=== PATIENT | female | born 1960 | race Caucasian/White ===

== ENCOUNTER 2023-06-11 06:14 | Outpatient (RCR) | payer OTHER, SELFPAY | END 2023-06-11 23:59 | disposition home or self-care (01) | LOC: RPT 06:14 | PROVIDERS: ATTENDING PHYSICIAN Internal Medicine | DX: R42 Dizziness and giddiness (principal) | CPT/HCPCS: 97112; 97163 ==

== ENCOUNTER → 2023-09-17 14:28 | Outpatient (REF) | payer OTHER, SELFPAY | LOC: RAD 14:28 | PROVIDERS: ATTENDING PHYSICIAN Nurse Practitioner | DX: M25.561 Pain in right knee (principal); M25.562 Pain in left knee | CPT/HCPCS: 73564 ==

== ENCOUNTER 2023-10-01 07:47 | Inpatient (IN) | payer OTHER, SELFPAY ==
[2023-09-30 18:26] VITALS: BP 135/81; BMI 34.8
--- NOTE | 2023-09-30 19:57 | ED.GENMED ---
History of Present Illness
General
Chief Complaint: Chest Pain
Source: patient and records
Exam Limitations: none
Time Seen by Provider: 09/30/23 19:28
Nursing documentation reviewed up to this point in time: agreed with
Travel History
Have you had any contact with someone who has COVID-19?: No
Do you have any symptoms of coronavirus? Fever > 100 degrees, chills, cough, shortness of breath, sore throat, loss of taste or smell, muscle aches, or headache?: No
History of Present Illness
History of Present Illness:
63-year-old female patient Dr. Stiles AICD went off 1 time previously in April 2023 meds and settings were adjusted started new diet about a week ago had some diarrhea earlier today had about 10 minutes of palpitations then had an AICD shock few
hours ago subsequently had some pain in her chest, no fevers, has been compliant with her metoprolol 50 twice daily
Past History
Past History
ED Past Medical History: Arrthythmia, GERD and Other (Hypertrophic cardiomyopathy)
ED Past Surgical History: Cardiac
Social History
Tobacco: Non-smoker
Alcohol: None
Drug: None
Personal:
Living: with family
Employment: Employed
Review of Systems
Review of Systems
All Other Systems: Not applicable
Constitutional: Denies fatigue
Cardiac: Reports palpitations and other (AICD shock)
ABD/GI: Reports diarrhea
Phy Exam
Physical Exam
Physical Exam:
Physical Exam
General: no apparent distress, not acutely ill
Neck: No jaundice
Heart: Regular
Lungs: no acute respiratory distress. clear bilaterally
Neuro: alert and oriented. no focal neurological deficits
Skin: no rash
Psychiatric: well kept. interactive and cooperative
Extremities: no edema.
Scores
Heart Score for Chest Pain Patients
STEMI patient?: Not applicable
Course
Orders/Labs/Results
Orders:
Orders
09/30/23 18:25
EKG [Electrocardiogram (*1)] Urgent
Reason for Study: Tachycardia
09/30/23 18:26
EKG- Treatment ONCE
09/30/23 19:33
CR Chest - 2 Views Urgent
Comment:
Reason For Exam: cp
09/30/23 19:52
Complete Blood Count/With Diff Urgent
Comprehensive Metabolic Panel Urgent
Magnesium Urgent
Troponin I Urgent
09/30/23 20:54
0.9% Sodium Chloride 500 ml [Nss] 500 ml IV BOLUS
09/30/23 21:28
Metoprolol [Lopressor] 75 mg PO NOW STA
09/30/23 21:29
CARDIOLOGY CONSULT Routine
Consulting Provider: Killian Lyn
Was physician already notified: Yes
09/30/23 21:30
Apixaban [Eliquis] 5 mg PO BID
Abnormal Lab Results
09/30/23
19:52
MCH 31.7 H pg
(27.0-31.0)
Carbon Dioxide 21 L mmol/L
(22-30)
BUN 23 H mg/dl
(7-17)
Glucose 147 H mg/dl
(70-99)
AST 40 H U/L
(14-36)
09/30/23 19:52
09/30/23 19:52
Vital Signs
Initial and Last Documented VS:
Initial Vital Signs
Temp Pulse Resp BP Pulse Ox
98.2 F 79 16 135/81 98
09/30/23 18:26 09/30/23 18:26 09/30/23 18:26 09/30/23 18:26 09/30/23 18:26
Last Documented Vital Signs
Temp Pulse Resp BP Pulse Ox
98.2 F 79 16 135/81 98
09/30/23 18:26 09/30/23 18:26 09/30/23 18:26 09/30/23 18:26 09/30/23 18:26
MDM/Problems Addressed
Differential Diagnosis Includes:
AICD shock VT AF SVT
MDM/Problems Addressed:
Palpitations
Chronic conditions affecting care: Cardiomyopathy
Acute Exacerbation and/or Progression of Chronic Illness: Cardiomyopathy
*Radiology
Radiology exam reviewed: preliminary read by ED provider
*Pulse Oximetry
Patient hypoxic: no
*EKG
Interpreted by ED Provider?: Yes
Interpretation: abnormal
Comparison EKG: changes noted
Heart Rate: 78
Rate: normal
Rhythm: sinus
Ischemia: T-wave inversion
*Active Directory Administrator Interpretation
Rate: normal
Interpretation: normal
Heart Rate: 78
Rhythm: ventricular paced
*Critical Care Note
Total Time (30-74mins, 75-104mins- exclusive of procedures): Not Applicable
Update Note
Update Note:
Update reviewed with StowThat patient with VF zone shock ATP unsuccessful 30 J shock heart rate greater than 200
Reviewed with cardiology and EP, likely rapid A-fib
Plan increase AV bernardo blockers anticoagulation correct electrolytes
Reviewed with patient and on-call cardiology and hospitalist will be admitted overnight for monitoring
ED Attending Note
-
Portions of this chart may have been created with voice recognition software.� Occasional wrong word or��sound alike� substitutions may have occurred due to the inherent limitations of voice recognition software.
Discharge Plan
Departure
Patient Disposition: Admit
Date of Disposition: 09/30/23
Time of Disposition: 21:31
Admit to: Telemetry
Presentation/result/management discussed w/ accepting MD/DO: Hospitalist
Patient with high blood pressure during this ER visit?: No
Condition: Good
Discharge Problem:
aicd shock
Prescriptions:
No Action
rabeprazole [AcipHex] 20 MG tablet,delayed release (DR/EC)
20 mg PO DAILY
metoprolol tartrate 50 MG tablet
75 mg PO .PM
loratadine 10 MG tablet
10 mg PO DAILY
epinephrine [EpiPen] 0.3 MG/0.3/SYRINGE auto-injector
0.3 mg IM STAT! PRN (Reason: severe sob) Qty: 2 0RF
multivitamin [Multi-Day] 1 EACH tablet
1 tab PO DAILY
levothyroxine 75 MCG tablet
75 mcg PO .PM
escitalopram oxalate 5 MG tablet
5 mg PO DAILY
ondansetron 4 mg tablet,disintegrating
4 mg PO Q8H PRN (Reason: nausea and vomiting) Qty: 7 0RF
meclizine 25 mg tablet
25 mg PO TID PRN (Reason: dizziness) Qty: 10 0RF
Referrals:
Hanh Pena MD [Family Provider] -
Interventions
Interventions:
*Risk Screen - Suicide Last Done: 09/30/23 18:26
*Neglect/Abuse Screening Last Done: 09/30/23 18:26
ED- Fall Risk Assessment Last Done: 09/30/23 18:26
*ED COVID-19 Vaccine History Last Done: 09/30/23 18:26
ED- Cardiac Assessment Last Done: 09/30/23 19:57
Discharge Date and Time
Print Language: AFGHAN
[2023-09-30 19:59] LABS: % Basophils 0.7 % (0-2); % Eosinophils 1.6 % (0-6); % Immature Granulocytes 0.1 % (0-0.5); % Lymphocytes 30.5 % (20.5-51.1); % Monocytes 7.1 % (1.7-9.3); Absolute Basophils 0.1 10^3/uL (0-0.2); Absolute Eosinophils 0.1 10^3/uL (0-0.7); Absolute Lymphocytes 2.2 10^3/uL (1.2-3.4); Absolute Monocytes 0.5 10^3/uL (0.1-0.6); Absolute Neutrophils 4.2 10^3/uL (1.4-6.5); Hemoglobin 14.7 g/dL (12.0-16.0); Mean Corp Hgb Conc. 36.8 g/dL (33.0-37.0); Mean Corpuscular Hgb 31.7 pg (27.0-31.0); Mean Corpuscular Volume 86.2 fL (81.0-99.0); Mean Platelet Volume 9.4 fL (7.4-10.4); Nucleated Red Blood Cells % 0 %; Platelet Count 240 10^3/uL (130-400); Red Blood Cell Count 4.64 10^6/uL (4.20-5.40); Red Cell Dist. Width 12.7 % (11.5-14.5)
[2023-09-30 20:04] VITALS: BP 102/71
[2023-09-30 20:14] LABS: ALT (SGPT) 28 U/L (0-35); AST (SGOT) 40 U/L (14-36); Albumin 4.9 g/dl (3.5-5.0); Alkaline Phosphatase 82 U/L (38-126); Blood Urea Nitrogen 23 mg/dl (7-17); Calcium 9.5 mg/dl (8.4-10.2); Carbon Dioxide 21 mmol/L (22-30); Chloride 101 mmol/L (98-107); Estimated Creatinine Clearance 93 ml/min; Glucose 147 mg/dl (70-99); Magnesium 1.9 mg/dl (1.6-2.3); Potassium 3.7 mmol/L (3.5-5.1); Sodium 135 mmol/L (135-145); Total Bilirubin 0.5 mg/dl (0.2-1.3); Total Protein 7.8 g/dl (6.3-8.2); eGFR > 60.00
[2023-09-30 20:20] LABS: Troponin I < 0.012 ng/ml
[2023-09-30 21:00] VITALS: BP 116/68
[2023-09-30] MEDS: LOPRESSOR 75 MG PO (21:34)
[2023-09-30] MEDS: ELIQUIS 5 MG PO (21:37)
[2023-09-30] MEDS: NSS 500 IV (21:37)
--- NOTE | 2023-09-30 21:51 | HPS.HSE ---
Family Physician
-
Family Physician: Hanh Pena
Chief Complaint
-
ICD shock
History of Present Illness
63-year-old female past medical history of hypertrophic cardiomyopathy status post ICD, IBS, panic attacks, hypothyroidism, GERD, presenting with ICD shock.
Patient started a new diet last week which involves eating 9[address]01 trevor a day. Today she developed profuse watery diarrhea. Later in the day she developed palpitations associated with dizziness and sweating and chest pain with numbness of her left
upper extremity. She took extra dose of beta-annabelle which she was told by her hris analyst to do previously but this did not help. Her ICD then shocked her. She denies passing out. After some time she felt better. She denies any symptoms
currently. Had some nausea previously but denies vomiting or abdominal pain.
Patient had a similar episode in April 2023. At that time tachycardia was attributed to bronchitis and steroids. Her pacemaker settings were adjusted at that time.
She states the diarrhea has since resolved.
She smokes a few cigarettes a day. Drinks alcohol very rarely.
Medical History
Past Medical History
Past Medical History: Reports Other (hypertrophic cardiomyopathy status post ICD, IBS, panic attacks, hypothyroidism, GERD,)
Past Surgical History: Reports Appendectomy and
Social History
Tobacco: Smoker
Alcohol: Occasional
Drug: None
Family History
Family History: Not pertinent
Allergies / Home Medications
Allergies reflects when Allergies were last updated in [employer]
Home Medications with original date entered in [employer]
Allergy/Medication List:
Allergies
Allergy/AdvReac Type Severity Reaction Status Date / Time
bee stings Allergy Swelling Uncoded 09/30/23 18:25
Home Medications
loratadine 10 mg tablet 10 mg PO DAILY 01/28/08
escitalopram oxalate 5 mg tablet 5 mg PO DAILY 06/04/16
ascorbic acid (vitamin C) 500 mg tablet (Vitamin C) 500 mg PO DAILY 09/30/23
levothyroxine 88 mcg tablet (Synthroid) 88 mcg PO DAILY 09/30/23
metoprolol succinate 50 mg tablet,extended release 24 hr (Toprol XL) 50 mg PO BID 09/30/23
omeprazole 20 mg tablet,delayed release 20 mg PO DAILY 09/30/23
pravastatin 80 mg tablet 40 mg PO HS 09/30/23
therapeutic multivitamin 1 tab PO DAILY 09/30/23
turmeric 400 mg capsule 400 mg PO DAILY 09/30/23
Review of Systems
-
History Source: Patient
A 12 point ROS was completed and negative except as noted: Yes
Constitutional: Reports No Symptoms
EENT: Reports No Symptoms
Respiratory: Reports No Symptoms
Cardiac: Reports No Symptoms
Abdomen/GI: Reports See HPI
: Reports No Symptoms
Musculoskeletal: Reports No Symptoms
Skin: Reports No Symptoms
Neurological: Reports No Symptoms
Endocrine: Reports No Symptoms
Hematologic/Lymphatic: Reports No Symptoms
Psych: Reports No Symptoms
Physical Exam
Vital Signs
Vital Signs
Temp Pulse Resp BP Pulse Ox
98.2 F 70 21 116/68 98
09/30/23 18:26 09/30/23 21:34 09/30/23 21:15 09/30/23 21:34 09/30/23 18:26
Physical Exam
General: Well Developed, Well Nourished and No Apparent Distress
HEENT: NormoCephalic, Moist mucous membranes and Atraumatic
Respiratory: Clear
Cardiac: S1/S2 and Regular Rhythm; No Murmur or Rub
GI: Soft, Non Tender, Non Distended and Normal Bowel Sounds; No Organomegaly
Rectal: Deferred by Provider
Musculoskeletal: No Clubbing, No Cyanosis and No Edema
Skin: No Rash
Neuro: Nonfocal/grossly intact
Laboratory Results
-
09/30/23 19:52
09/30/23 19:52
Laboratory Results
Total Bilirubin 0.5 mg/dl (0.2-1.3) 09/30/23 19:52
AST 40 U/L (14-36) H 09/30/23 19:52
ALT 28 U/L (0-35) 09/30/23 19:52
Alkaline Phosphatase 82 U/L (38-126) 09/30/23 19:52
Troponin I < 0.012 ng/ml 09/30/23 19:52
Data Reviewed
-
Lab Data: Labs Reviewed by me
Old Records: Reviewed
Impression/Plan
-
IMPRESSION:
PLAN:
# Suspected atrial fibrillation with RVR status post ICD shock likely triggered by diarrhea
# History of hypertrophic cardiomyopathy with ICD
-EKG shows normal sinus rhythm, LVH with repolarization abnormality,
-Troponin negative
-Chest x-ray shows enlarged cardiac silhouette size with no pulmonary edema or pleural effusion
-ER discussed with EP hris analyst Linsey Villeda who thinks that patient may have had atrial fibrillation and he recommended increasing beta-annabelle and starting Eliquis
-IV fluids given
-Lopressor 75 mg given,Toprol dose will need to be increased by cardiology
-Telemetry monitoring
-Cardiology consulted
# Diarrhea possibly related to recently started diet/IBS/gastroenteritis
-Diarrhea has resolved
-Resume regular diet
-Check stool studies if persistent diarrhea
History of diarrhea predominant IBS
History of anxiety/panic attack
-Continue Lexapro
Hypothyroidism
-Continue levothyroxine
GERD
-Continue omeprazole
Smoker
Full code
DVT prophylaxis�Eliquis
Regular diet
[2023-09-30 22:00] VITALS: BP 110/71
[2023-09-30 22:12] VITALS: BMI 34.8
[2023-10-01 06:00] VITALS: BMI 34.1
[2023-10-01 06:33] VITALS: BP 133/77
--- NOTE | 2023-10-01 06:36 | PTCARENOTE ---
Patient admitted to the unit. NSR 60. Denies pain or shortness of breath, call ballard in reach
--- NOTE | 2023-10-01 07:09 | W.PN.HOSP.TC ---
Addendum entered and electronically signed by Marco A Rodriguez MD 10/01/23 17:02:
ECHO appreciated no significant change from prior.
Discussed with Cardio, stable for discharge home with outpatient follow up recommendations and new prescriptions Eliquis and Cardizem
Original Note:
Today's Communication/Plan
-
Follow ECHO results
pacemaker interrogation
possible discharge today pending Cardio clearance
Assessment / Plan
Assessment / Plan
Physical Exam
General: Well Developed, Well Nourished and No Apparent Distress
HEENT: NormoCephalic, Moist mucous membranes and Atraumatic
Respiratory: Clear
Cardiac: S1/S2 and Regular Rhythm; No Murmur or Rub
GI: Soft, Non Tender, Non Distended and Normal Bowel Sounds; No Organomegaly
Musculoskeletal: No Clubbing, No Cyanosis and No Edema
Skin: No Rash
Neuro: Nonfocal/grossly intact
63F Hypertrophic Cardiomyopathy ICD IBS panic attacks hypothyroidism p/w AICD firing possibly d/t Afib RVR.
# Suspected atrial fibrillation with RVR status post ICD shock possibly triggered by diarrhea
# History of hypertrophic cardiomyopathy with ICD
-EKG shows normal sinus rhythm, LVH with repolarization abnormality,
-Troponin negative
-Chest x-ray shows enlarged cardiac silhouette size with no pulmonary edema or pleural effusion
-Telemetry monitoring
-Cardiology consult appreciated Eliquis and Cardizem added to medication regimen, checking ECHO and pacemaker to be interrogated
# Diarrhea possibly related to recently started diet/IBS/gastroenteritis
-Diarrhea resolved
-cont regular diet
History of diarrhea predominant IBS
History of anxiety/panic attack
-Continue Lexapro
Hypothyroidism
-Continue levothyroxine
GERD
-Continue omeprazole
Smoker
Full code
DVT prophylaxis�Eliquis
Regular diet
I spent a total of 50 minutes with the patient or on the floor. More than 50% of this time involved counseling and coordination of care.
Anticipated Discharge: Today
Subjective/Interval History
-
Date of Service: October 01, 2023
Seen and examined at bedside in no acute distress sitting up comfortably in bed. Reports chronic loose stools. Tolerating diet. Denies nausea vomiting abd chest pain palpitations. Overall reports feeling well.
Objective Data
-
Labs:
Laboratory Results
09/30/23 10/01/23
19:52 06:00
WBC 7.0 Pending
Hgb 14.7 Pending
Hct 40.0 Pending
Plt Count 240 Pending
Sodium 135 Pending
Potassium 3.7 Pending
Chloride 101 Pending
Carbon Dioxide 21 L Pending
BUN 23 H Pending
Creatinine 0.6 Pending
Glucose 147 H Pending
Calcium 9.5 Pending
Total Bilirubin 0.5 Pending
AST 40 H Pending
ALT 28 Pending
Alkaline Phosphatase 82 Pending
Vital Signs:
Vital Signs
Temp Pulse Resp BP Pulse Ox
97.1 F 54 16 133/77 97
10/01/23 06:34 10/01/23 06:33 10/01/23 06:34 10/01/23 06:33 10/01/23 06:34
--- NOTE | 2023-10-01 07:56 | CON.CAR ---
Addendum entered and electronically signed by Cielo Syed DO 10/01/23 13:14:
I saw and examined the patient.
The Ibm Bpm Developer's note was reviewed and I agree with the note.
Comment: Patient seen and examined with cardiac PA. Vidya is a pleasant 63-year-old female with past medical history of HOCM, VT status post Medtronic dual-chamber ICD, IBS, hypothyroidism. In April 2023 she had inappropriate shock for atrial
fibrillation in the setting of being on steroid inhalers for URI. At that time device was reprogrammed, raising the VF detection to 194 bpm with a monitor zone at 170. Yesterday while sitting on the couch, she had approximately 7 minutes of
palpitations and weakness with a feeling of her heart beating out of her chest followed by an ICD shock. She came to the emergency room for evaluation and by device interrogation again noted to have episode of A-fib with RVR. Over night she is
feels well and back to her usual state of health.
General: No Apparent Distress and Comfortable
HEENT: Normocephalic, Anicteric and Moist Mucous Membranes
Respiratory: Clear and Non Labored Respirations
Cardiac: Regular. Positive S1-S2. No murmurs. Positive ICD
GI: Soft, Non Tender, Non Distended and Normal Bowel Sounds
EXT: no edema
Plan:
Presented with inappropriate ICD shock for atrial fibrillation with RVR on 09/30/2023 with history of hypertrophic heart disease
- Remains in sinus rhythm on review of telemetry.
- Check TSH.
- Discussed with her licensed insurance sales agent, Dr. Stiles with plan to add Cardizem CD 120 mg daily to outpatient Toprol XL 50 mg twice daily.
- Repeat echocardiogram.
- Await device interrogation to reassess settings which will be discussed with Dr. Stiles.
- Consideration for outpatient A-fib ablation; she is aware of this procedure as her brothers have it twice
- Continue Eliquis anticoagulation for now
- Anticipate discharge home later today with outpatient follow-up with Dr. Stiles
Original Note:
Consultation
Consultation Request
Date/Time Consultation Performed: 10/01/23
Requesting Provider: Dr. Balderrama
Performing Provider: Susan Veloz PA-C for Dr. Syed
Reason for Consultation: ICD shock
Medical History
-
Chief Complaint: ICD shock
History of Present Illness:
Patient is a pleasant 63-year-old female with past medical history of HOCM, VT status post Medtronic dual-chamber ICD, IBS, hypothyroidism. In April 2023 she had inappropriate shock for atrial fibrillation in the setting of being on steroid
inhalers for URI. At that time device was reprogrammed, raising the VF detection to 194 bpm with a monitor zone at 170. Yesterday while sitting on the couch, she had approximately 7 minutes of palpitations and weakness with a feeling of her heart
beating out of her chest followed by an ICD shock. She came to the emergency room for evaluation and by device interrogation again noted to have episode of A-fib with RVR. She states she did start a new diet recently where she is eating 1000 trevor a
day. Yesterday she went out to eat with friends and believes her meal had onions in it which causes her GI issues. Upon arriving home, she had stomach discomfort, and some diarrhea, although has IBS so this is not out of the ordinary for her. She
states otherwise it was a typical day yesterday. She feels fine at present. No syncope. Cardiology consulted for evaluation
PMH:
HOCM
History of VT s/p Medtronic DC ICD
History of inappropriate shock for AF with RVR 04/2023
IBS
Hypothyroidism
HLD
GERD
Anxiety
Ongoing tobacco use
Past Medical History
Past Medical History: Other (in HPI)
Social History
Tobacco: Smoker
Alcohol: Occasional
Allergies / Home Medications
Allergy/AdvReac Type Severity Reaction Status Date / Time
bee stings Allergy Swelling Uncoded 09/30/23 18:25
�Medication �Instructions �Recorded �Confirmed �Type
loratadine 10 mg tablet 10 mg PO DAILY 01/28/08 10/01/23 History
escitalopram oxalate 5 mg tablet 5 mg PO DAILY 06/04/16 10/01/23 History
ascorbic acid (vitamin C) 500 mg 500 mg PO DAILY 09/30/23 10/01/23 History
tablet (Vitamin C)
levothyroxine 88 mcg tablet 88 mcg PO DAILY 09/30/23 10/01/23 History
(Synthroid)
metoprolol succinate 50 mg 50 mg PO BID 09/30/23 10/01/23 History
tablet,extended release 24 hr
(Toprol XL)
omeprazole 20 mg tablet,delayed 20 mg PO DAILY 09/30/23 10/01/23 History
release
pravastatin 80 mg tablet 40 mg PO HS 09/30/23 10/01/23 History
therapeutic multivitamin 1 tab PO DAILY 09/30/23 10/01/23 History
turmeric 400 mg capsule 400 mg PO DAILY 09/30/23 10/01/23 History
Review of Systems
-
History Source: Patient
All other systems: Negative unless noted
Physical Exam
Vital Signs
Temp Pulse Resp BP Pulse Ox
97.1 F 54 16 133/77 97
10/01/23 06:34 10/01/23 06:33 10/01/23 06:34 10/01/23 06:33 10/01/23 06:34
Lab Results
Troponin I < 0.012 ng/ml 09/30/23 19:52
Physical Exam
General: No Apparent Distress and Comfortable
HEENT: Normocephalic, Anicteric and Moist Mucous Membranes
Respiratory: Clear and Non Labored Respirations
Cardiac: S1/S2, Regular Rhythm and Murmur
GI: Soft, Non Tender, Non Distended and Normal Bowel Sounds
Musculoskeletal: No Clubbing, No Cyanosis and No Edema
Skin: Warm and Dry
Neuro: AO x 3
Impression / Plan
-
Primary Health Information Director: Dr. Stiles
Assessment:
Presentation with palpitations followed by inappropriate ICD shock for Afib with RVR 09/30/23
Recent diarrhea
HOCM
History of VT s/p Medtronic DC ICD
History of inappropriate shock for AF with RVR 04/2023
IBS
Hypothyroidism
HLD
GERD
Anxiety
Ongoing tobacco use
ECHO 2020: Hypertrophic obstructive heart disease with hyperdynamic LV function, EF 70 to 75%, asymmetric septal hypertrophy, septal thickness 2.6 cm with small LVOT and mid cavitary obliteration, mid cavity gradient of 74 mmHg that increases to 102
mmHg with Valsalva, biatrial dilatation, mild to moderate MR, mild TR, PAP 51 mmHg
Plan:
-Patient presents with ICD shock. Upon review of device interrogation completed in ER noted to have A-fib with RVR correlating with the event. she also had inappropriate shock for afib 04/2023.
-Remains in sinus rhythm on review of telemetry overnight
-CXR with clear lungs
-Discussed with EP. Will continue outpatient Toprol 50 mg twice daily. Will add Cardizem CD 120 mg daily
-Device rep to come reassess settings, may need reprogramming
-Check echo. Last from 2020 with results as above
-Check TSH as on Synthroid as an outpatient
-Perhaps mildly dehydrated by blood work on arrival. Encourage adequate hydration in the setting of diarrhea.
-[id number] score of 1. was started on eliquis 5mg BID in ER as was cardioverted with ICD shock. can reassess need as OP pending AF burden
-for possible DC to home later today
-d/w nursing
Data Reviewed
-
EKG: Tracing Personally Visualized and interpreted
Radiology: Report Reviewed by me
Medical Tests (Nuc Med, Echo etc): Report Reviewed by me
Labs: Labs Reviewed by me
Old Records: Reviewed
[2023-10-01] MEDS: PROTONIX 40 MG PO (08:32)
[2023-10-01] MEDS: CLARITIN 10 MG PO (08:32)
[2023-10-01] MEDS: LEXAPRO 5 MG PO (08:32)
[2023-10-01] MEDS: ELIQUIS 5 MG PO (08:32)
[2023-10-01] MEDS: SYNTHROID 88 MCG PO (08:33)
[2023-10-01] MEDS: TOPROL XL 50 MG PO (08:33)
[2023-10-01] MEDS: CARDIZEM CD 120 MG PO (08:38)
--- NOTE | 2023-10-01 10:12 | CM ---
Reviewed chart. Met with Mrs. Bautista to review discharge plans. She states prior to admission she resides alone in a two story home with two steps to enter. She states she has a full flight of steps to get to bedroom/full bathroom. She states
she has a powder room on the first floor. She states prior to admission she was independent with ambulation and adls. She states she does not have any DME in the home, she states she has a prescription plan and uses [facility]. Medical work-up
in progress. The discharge plan is to return home when medically stable.
[2023-10-01 11:20] VITALS: BP 117/66
[2023-10-01 12:54] LABS: % Basophils 0.9 % (0-2); % Eosinophils 1.8 % (0-6); % Immature Granulocytes 0.2 % (0-0.5); % Lymphocytes 30.9 % (20.5-51.1); % Monocytes 5.8 % (1.7-9.3); % Neutrophils 60.4 % (42.2-75.2); Absolute Basophils 0.1 10^3/uL (0-0.2); Absolute Eosinophils 0.1 10^3/uL (0-0.7); Absolute Lymphocytes 1.7 10^3/uL (1.2-3.4); Absolute Monocytes 0.3 10^3/uL (0.1-0.6); Absolute Neutrophils 3.3 10^3/uL (1.4-6.5); Hemoglobin 13.5 g/dL (12.0-16.0); Mean Corp Hgb Conc. 35.5 g/dL (33.0-37.0); Mean Corpuscular Hgb 31.5 pg (27.0-31.0); Mean Corpuscular Volume 88.6 fL (81.0-99.0); Mean Platelet Volume 9.5 fL (7.4-10.4); Nucleated Red Blood Cells % 0 %; Platelet Count 209 10^3/uL (130-400); Red Blood Cell Count 4.29 10^6/uL (4.20-5.40); White Blood Cell Count 5.5 10^3/uL (4.8-10.8)
[2023-10-01 13:09] LABS: ALT (SGPT) 26 U/L (0-35); AST (SGOT) 44 U/L (14-36); Albumin 4.2 g/dl (3.5-5.0); Alkaline Phosphatase 68 U/L (38-126); Blood Urea Nitrogen 14 mg/dl (7-17); Calcium 8.9 mg/dl (8.4-10.2); Carbon Dioxide 21 mmol/L (22-30); Chloride 109 mmol/L (98-107); Estimated Creatinine Clearance 79 ml/min; Glucose 156 mg/dl (70-99); Potassium 3.8 mmol/L (3.5-5.1); Sodium 137 mmol/L (135-145); Total Bilirubin 0.5 mg/dl (0.2-1.3); Total Protein 6.8 g/dl (6.3-8.2); eGFR > 60.00
[2023-10-01 13:40] LABS: TSH Reflex To Free T4 2.52 uIU/ml (0.47-4.68)
[2023-10-01 15:13] VITALS: BP 112/60
--- NOTE | 2023-10-01 17:01 | W.DCSUMMARY ---
Discharge Summary
Discharge Data
Date of Admission: 09/30/23
Date of Discharge: 10/01/23
-
Pending Results: No
Hospital Course
63F Hypertrophic Cardiomyopathy ICD IBS panic attacks hypothyroidism p/w AICD firing possibly d/t Afib RVR. Suspected atrial fibrillation with RVR status post ICD shock possibly triggered by diarrhea. EKG showed normal sinus rhythm, LVH with
repolarization abnormality, Troponin negative. Chest x-ray showed enlarged cardiac silhouette size with no pulmonary edema or pleural effusion. Cardiology evaluated an recommended Eliquis and Cardizem be added to medication regimen. ECHO
appreciated no significant change from prior, pacemaker was interrogated. Diarrhea, possibly related to recently started diet/IBS/gastroenteritis, resolved. Per discussion with Cardio, stable for discharge home with outpatient follow up
recommendations and new prescriptions Eliquis and Cardizem, patient was discharged accordingly.
Discharge Plan
-
Patient Disposition: Home (Routine Discharge)
Discharge Diagnosis/Procedures: atrial fibrillation, ICD shock
Condition: Fair
Diet: Low Cholesterol
Activity: As tolerated
Driving Restrictions: As prior to admission
Bathing Restrictions: None
Activity Restrictions/Additional Instructions:
Please follow up with primary care provider in 1 week of discharge and keep your appointment with Cardiology.
Eliquis and Cardizem have been prescribed for new onset atrial fibrillation.
Please take medications as prescribed/recommended and follow up with primary care provider and/or other healthcare provider involved in your care for refills and/or further adjustment to your medication regimen as necessary.
Instructions: Atrial Fibrillation (DC)
Referrals:
Alvino Stiles MD [Active] - 11/04/23 12:40 pm (You have a follow up at the [facility]. Please call with questions. )
Hanh Pena MD [Family Provider] - in one week
Additional Discharge Medication Instructions: eliquis and cardizem are new medications
Prescriptions:
New
diltiazem HCl 120 mg Capsule,Extended Release 24hr
120 mg PO DAILY 30 Days Qty: 30 0RF
Eliquis 5 mg Tablet
5 mg PO BID 30 Days Qty: 60 0RF
Continued
loratadine 10 MG tablet
10 mg PO DAILY
escitalopram oxalate 5 MG tablet
5 mg PO DAILY
metoprolol succinate [Toprol XL] 50 mg Tablet Extended Release 24 Hr
50 mg PO BID
pravastatin 80 mg Tablet
40 mg PO HS
ascorbic acid (vitamin C) [Vitamin C] 500 mg Tablet
500 mg PO DAILY
omeprazole 20 mg Tablet,Delayed Release (Dr/Ec)
20 mg PO DAILY
turmeric 400 mg Capsule
400 mg PO DAILY
levothyroxine [Synthroid] 88 mcg Tablet
88 mcg PO DAILY
therapeutic multivitamin Tablet
1 tab PO DAILY
Discharge Orders:
Discharge Patient (As Directed); Ordered 10/01/23
Ordered By: Marco A Rodriguez
Care Plan Goals
Care Plan Goals:
Problem: Readiness for enhanced knowledge related to diagnosis and treatment plan
Goal: Understand your diagnosis and treatment plan needs, including medications if applicable.
Instructions: Know your diagnosis, underlying causes and treatment plan options, including medications if applicable. Consult with your health care team to learn about your diagnosis and treatment plan, including medications if applicable.
Discharge Date and Time
Discharge Date/Time: 10/01/23 18:21
Print Language: UKRAINIAN
== END 2023-10-01 18:21 | disposition home or self-care (01) | DRG 309 ==
LOC: IVU 07:47
PROVIDERS: ADMITTING PHYSICIAN Hospitalist; ATTENDING PHYSICIAN Internal Medicine; EMERGENCY PHYSICIAN Emergency Medicine; FAMILY PHYSICIAN Internal Medicine; OTHER PHYSICIAN Internal Medicine Cardiovascular Disease
DX: I48.91 Unspecified atrial fibrillation (principal); R57.9 Shock, unspecified; Z79.01 Long term (current) use of anticoagulants; F17.210 Nicotine dependence, cigarettes, uncomplicated; E03.9 Hypothyroidism, unspecified; K21.9 Gastro-esophageal reflux disease without esophagitis; F41.9 Anxiety disorder, unspecified
CPT/HCPCS: 71046; 80053; 83735; 84443; 84484; 85025; 93005; 93306; 99284

== ENCOUNTER 2023-11-10 11:21 | Inpatient (IN) | payer OTHER, SELFPAY ==
[2023-11-06 19:53] VITALS: BP 142/64
[2023-11-06 20:32] LABS: COVID-19 Antigen Negative (Negative)
[2023-11-06 20:56] LABS: % Basophils 0.7 % (0-2); % Eosinophils 0.2 % (0-6); % Immature Granulocytes 0.2 % (0-0.5); % Lymphocytes 8.8 % (20.5-51.1); % Monocytes 11.7 % (1.7-9.3); % Neutrophils 78.4 % (42.2-75.2); Absolute Lymphocytes 0.4 10^3/uL (1.2-3.4); Absolute Monocytes 0.5 10^3/uL (0.1-0.6); Absolute Neutrophils 3.6 10^3/uL (1.4-6.5); Hematocrit 33.5 % (37.0-47.0); Hemoglobin 12.1 g/dL (12.0-16.0); Mean Corp Hgb Conc. 36.1 g/dL (33.0-37.0); Mean Corpuscular Hgb 31.4 pg (27.0-31.0); Mean Platelet Volume 9.1 fL (7.4-10.4); Nucleated Red Blood Cells % 0 %; Platelet Count 168 10^3/uL (130-400); Red Blood Cell Count 3.85 10^6/uL (4.20-5.40); Red Cell Dist. Width 12.8 % (11.5-14.5); White Blood Cell Count 4.5 10^3/uL (4.8-10.8)
[2023-11-06 21:09] LABS: ALT (SGPT) 16 U/L (0-35); AST (SGOT) 32 U/L (14-36); Albumin 4.2 g/dl (3.5-5.0); Alkaline Phosphatase 66 U/L (38-126); Blood Urea Nitrogen 12 mg/dl (7-17); Calcium 8.9 mg/dl (8.4-10.2); Carbon Dioxide 19 mmol/L (22-30); Chloride 105 mmol/L (98-107); Glucose 101 mg/dl (70-99); Potassium 3.9 mmol/L (3.5-5.1); Sodium 134 mmol/L (135-145); Total Bilirubin 0.5 mg/dl (0.2-1.3); Total Protein 6.9 g/dl (6.3-8.2); eGFR > 60.00
--- NOTE | 2023-11-06 21:13 | ED.GENMED ---
History of Present Illness
General
Chief Complaint: Breathing Problem
Source: patient
Exam Limitations: none
Time Seen by Provider: 11/06/23 20:47
Travel History
Have you had any contact with someone who has COVID-19?: No
Do you have any symptoms of coronavirus? Fever > 100 degrees, chills, cough, shortness of breath, sore throat, loss of taste or smell, muscle aches, or headache?: No
History of Present Illness
History of Present Illness:
This is a 63 year old female that comes in with c/o cough, chest pain and SOB. States that last weekend she started with this. States that she went to see the PCP on Thursday as she thought she had a sinus infection. States that she was given
Augmentin and she was unable to take this as it didn't agree with her stomach. States she was switched to Amoxicillin. States that last night she started with a fever. States that she takes Tylenol and it only last for about 2-3 hour. States that
she feels lightheaded and is having a hard time breathing. States that if she lays down she feels better when she is not moving. States that she has a cough. States that she had chills with the fever, chest pressure, SOB, abd pain all the time,
nausea, diarrhea, headache on and off and lightheadedness. Denies any vomiting, urinary burning.
Past History
Past History
ED Past Medical History: Arrthythmia, GERD, Hypothyroidism and Other (Hypertrophic cardiomyopathy, Vertigo, IBS)
ED Past Surgical History: Appendectomy, Cardiac (Pacer/Defib) and
Social History
Tobacco: Former smoker
Alcohol: None
Drug: None
Personal:
Living: with family
Employment: Employed
Review of Systems
Review of Systems
All Other Systems: ROS reviewed and negative except as documented in HPI and ROS
Constitutional: Reports fever and chills
EENT: Reports no symptoms
Respiratory: Reports cough and trouble breathing
Cardiac: Reports chest pain
ABD/GI: Reports abdominal pain, nausea and diarrhea; Denies vomiting
: Reports no symptoms; Denies dysuria, frequency or urgency
Musculoskeletal: Reports no symptoms
Skin: Reports no symptoms
Neurological: Reports headache (On and off) and other (Lightheadedness); Denies dizzy
Psychiatric: Reports no symptoms
Phy Exam
General Physical Exam
General Presentation: no apparent distress
General age: appears stated age
General Skin: warm and dry
General Habitus: normal
General Mental: alert
General Hydration: appears well hydrated
ENT Exam
ENT Exam: TM's normal, pharynx normal and neck supple
Eye Exam
Eye Exam: EOMI
Cardiovascular Exam
Cardiovascular Exam: regular rate/rhythm, no edema, no murmur and normal peripheral pulses
Pulmonary Exam
Pulmonary Exam: no respiratory distress, chest non tender, no rhonchi, no wheezing and other (Fine crackles right mid lung, Dry cough noted)
Gastrointestinal Exam
Gastrointestinal Exam: normal bowel sounds, non tender, soft, no organomegaly, no pulsatile mass and non distended
Musculoskeletal Exam
Musculoskeletal Exam: full ROM and no edema
Skin Exam
Skin Exam: normal color, warm/dry, no rash and no petechia
Psychiatric Exam
Psychiatric Exam: normal mood/affect
Scores
Heart Failure Risk
Heart Failure Risk Score: Not Applicable
Course
Orders/Labs/Results
Orders:
Orders
11/06/23 20:02
COVID-19 Antigen Urgent
Source: Nasal Swab
Influenza A+B Rapid Molecular Urgent
CRISTIANA Source: Nasal Swab
Specimen Description:
11/06/23 20:47
Complete Blood Count/With Diff Urgent
Comprehensive Metabolic Panel Urgent
11/06/23 21:12
Dexamethasone Sod Phosphate [Decadron] 20 mg IV NOW STA
Ipratropium/Albuterol Sulfate [Duoneb] 3 ml INH R NOW ONE
CR Chest - 2 Views Urgent
Comment:
Reason For Exam: Cough, fever
11/06/23 21:14
Electrocardiogram (*1) Urgent
Reason for Study: Shortness of Breath
EKG- Treatment ONCE
11/06/23 21:36
Troponin I Urgent
11/06/23 22:38
Piperacillin/Tazo 3.375 Gram [Zosyn] 3.375 gram in 50 ml IV NOW
Vancomycin 1 Gram/200 ml [Vancocin] 1 gram in 200 ml IV NOW
Abnormal Lab Results
11/06/23
20:47
WBC 4.5 L 10^3/uL
(4.8-10.8)
RBC 3.85 L 10^6/uL
(4.20-5.40)
Hct 33.5 L %
(37.0-47.0)
MCH 31.4 H pg
(27.0-31.0)
Absolute Lymphs (auto) 0.4 L 10^3/uL
(1.2-3.4)
Neutrophils % 78.4 H %
(42.2-75.2)
Lymphocytes % 8.8 L %
(20.5-51.1)
Monocytes % 11.7 H %
(1.7-9.3)
Sodium 134 L mmol/L
(135-145)
Carbon Dioxide 19 L mmol/L
(22-30)
Creatinine 0.5 L mg/dL
(0.6-1.0)
Glucose 101 H mg/dl
(70-99)
11/06/23 20:47
11/06/23 20:47
WBC slighlty low. Carbon dioxide low. Glucose nonfasting. COVID and influenza negative. Troponin <0.012
Vital Signs
Initial and Last Documented VS:
Initial Vital Signs
Temp Pulse Resp BP Pulse Ox
99.2 F 82 18 142/64 94
11/06/23 19:53 11/06/23 19:53 11/06/23 19:53 11/06/23 19:53 11/06/23 19:53
Last Documented Vital Signs
Temp Pulse Resp BP Pulse Ox
99.2 F 82 18 142/64 94
11/06/23 19:53 11/06/23 19:53 11/06/23 19:53 11/06/23 19:53 11/06/23 19:53
MDM/Problems Addressed
Differential Diagnosis Includes:
Bronchitis, PNA
MDM/Problems Addressed:
This is a 63 year old female that comes in with c/o SOB and chest pain. States that she started with a fever last night. States that she went to the PCP on Thursday as she thought she had a sinus infection. States that she was place on Augmentin
and had to be switched to Amoxicillin. States that she had a fever last night and her chest is tight with pressure.
Will get chest x-ray. Patient states that she does not want steroids or the breathing treatment.
Back into see patient. Explained that her X-ray shows that she has a right sided Pneumonia. Will admit patient. Hospitalist notified. Patient started on IV antibiotics.
Chronic conditions affecting care:
NA
Acute Exacerbation and/or Progression of Chronic Illness:
NA
*Radiology
Radiology exam reviewed: preliminary read by ED provider (Chest- Right sided Pneumonia )
*Pulse Oximetry
Patient hypoxic: no
*EKG
Interpreted by ED Provider?: Yes
Heart Rate: 70
Rate: normal
Rhythm: sinus
[place]: normal axis
Interval: normal interval
QRS Pattern: normal QRS
Ischemia: T-wave inversion ( T wave inversion aVL, AVF, with ST abnormality I, II, III, aVF, V4, V5, V6 Checked by Dr. Hodge)
*Chief Meteorologist Interpretation
Rate: normal
Heart Rate: 76
Rhythm: sinus
*Critical Care Note
Total Time (30-74mins, 75-104mins- exclusive of procedures): Not Applicable
ED Attending Note
-
Portions of this chart may have been created with voice recognition software.� Occasional wrong word or��sound alike� substitutions may have occurred due to the inherent limitations of voice recognition software.
Discharge Plan
Departure
Patient Disposition: Admit
Date of Disposition: 11/06/23
Time of Disposition: 22:44
Admit to: Med/Surg
Presentation/result/management discussed w/ accepting MD/DO: Hospitalist
Patient with high blood pressure during this ER visit?: Yes
Condition: Good
Covid-19: Negative COVID-19
Discharge Problem:
Pneumonia
Prescriptions:
No Action
loratadine 10 MG tablet
10 mg PO DAILY
escitalopram oxalate 5 MG tablet
5 mg PO DAILY
metoprolol succinate [Toprol XL] 50 mg Tablet Extended Release 24 Hr
50 mg PO BID
pravastatin 80 mg Tablet
40 mg PO HS
ascorbic acid (vitamin C) [Vitamin C] 500 mg Tablet
500 mg PO DAILY
omeprazole 20 mg Tablet,Delayed Release (Dr/Ec)
20 mg PO DAILY
turmeric 400 mg Capsule
400 mg PO DAILY
levothyroxine [Synthroid] 88 mcg Tablet
88 mcg PO DAILY
therapeutic multivitamin Tablet
1 tab PO DAILY
diltiazem HCl 120 mg Capsule,Extended Release 24hr
120 mg PO DAILY 30 Days Qty: 30 0RF
Eliquis 5 mg Tablet
5 mg PO BID 30 Days Qty: 60 0RF
Referrals:
Hanh Pena MD [Family Provider] -
Interventions
Interventions:
*Risk Screen - Suicide Last Done: 11/06/23 19:54
*General Assessment Last Done: 11/06/23 19:54
*Neglect/Abuse Screening Last Done: 11/06/23 19:54
Discharge Date and Time
Print Language: TANZANIAN
[2023-11-06 22:04] LABS: Troponin I < 0.012 ng/ml
[2023-11-06] MEDS: ZOSYN 50 IV (22:54)
--- NOTE | 2023-11-06 23:13 | HPS.HSE ---
Family Physician
-
Family Physician: Hanh Pena
Chief Complaint
-
Shortness of breath, cough
History of Present Illness
This is a 63-year-old female with past medical history significant for atrial fibrillation status post pacemaker placement and on anticoagulation, hypothyroidism, hyperlipidemia coming to the ED with cough/shortness of breath.
Patient reported that approximately 3 days ago she had upper respiratory symptoms with cough sinus congestion and postnasal drip. She was started on Augmentin and she took 2 days of medication. I when she developed severe diarrhea with the
Augmentin and was switched over to amoxicillin today. Despite the amoxicillin she reported that she is having increasing dyspnea on exertion. Cough is nonproductive. It is associated with some pleuritic chest discomfort. She reports having a
fever at home but she did not measure her temperature. She denies any sick contacts. She was recently hospitalized about a month ago for 48 hours with uncontrolled atrial fibrillation and she the pacemaker placement. She denies oral antibiotic
use. She is not anemic suppressants.
On arrival in ED patient was afebrile, oxygen saturation was 99% on room air. She was otherwise hemodynamically stable. Her chest x-ray shows a right middle lobe infiltrate. She had no leukocytosis. Rest of the CBC was unremarkable. Chemistries
are unremarkable. Troponin was negative.
Medical History
Past Medical History
Past Medical History: Reports Arrhythmia (atrial fibrillation), GERD and Hypercholesterolemia
Past Surgical History: Reports None
Social History
Tobacco: Former Smoker
Alcohol: None
Drug: None
Personal: Single
Living: Alone
Employment: Retired
Family History
Family History: Not pertinent
Allergies / Home Medications
Allergies reflects when Allergies were last updated in [facility].
Home Medications with original date entered in [facility]
Allergy/Medication List:
Allergies
Allergy/AdvReac Type Severity Reaction Status Date / Time
bee stings Allergy Swelling Uncoded 09/30/23 18:25
Home Medications
loratadine 10 mg tablet 10 mg PO DAILY Allergies 01/28/08
escitalopram oxalate 5 mg tablet 5 mg PO DAILY Mental Health/Anxiety 06/04/16
ascorbic acid (vitamin C) 500 mg tablet (Vitamin C) 500 mg PO DAILY Supplement 09/30/23
levothyroxine 88 mcg tablet (Synthroid) 88 mcg PO DAILY Thyroid 09/30/23
metoprolol succinate 50 mg tablet,extended release 24 hr (Toprol XL) 50 mg PO BID Blood Pressure 09/30/23
omeprazole 20 mg tablet,delayed release 20 mg PO DAILY GERD 09/30/23
pravastatin 80 mg tablet 40 mg PO HS High Cholesterol 09/30/23
therapeutic multivitamin 1 tab PO DAILY Supplement 09/30/23
turmeric 400 mg capsule 400 mg PO DAILY Supplement 09/30/23
apixaban 5 mg tablet (Eliquis) 5 mg PO BID 30 days #60 tabs 10/01/23
diltiazem HCl 120 mg capsule,extended release 24 hr 120 mg PO DAILY 30 days #30 caps 10/01/23
Review of Systems
-
History Source: Patient
Constitutional: Reports Fever
EENT: Reports Runny Nose
Respiratory: Reports Cough and Trouble Breathing
Cardiac: Reports No Symptoms
Abdomen/GI: Reports No Symptoms
: Reports No Symptoms
Musculoskeletal: Reports No Symptoms
Skin: Reports No Symptoms
Neurological: Reports No Symptoms
Endocrine: Reports No Symptoms
Hematologic/Lymphatic: Reports No Symptoms
Psych: Reports No Symptoms
Physical Exam
Vital Signs
Vital Signs
Temp Pulse Resp BP Pulse Ox
99.2 F 82 18 142/64 97
11/06/23 19:53 11/06/23 19:53 11/06/23 19:53 11/06/23 19:53 11/06/23 22:59
Physical Exam
General: Well Developed, Well Nourished and No Apparent Distress
HEENT: NormoCephalic, Anicteric, Moist mucous membranes and Atraumatic
Respiratory: Clear and Crackles
Cardiac: S1/S2 and Regular Rhythm
Breast: Deferred by me
GI: Soft, Non Tender, Non Distended and Normal Bowel Sounds
Rectal: Deferred by Provider
Genito-urinary: Deferred by me
Musculoskeletal: No Clubbing, No Cyanosis and No Edema
Skin: Warm and Dry
Neuro: AO x 3
Hematologic/Lymphatic: No Lymphadenopathy
Psych: Calm
Laboratory Results
-
11/06/23 20:47
11/06/23 20:47
Laboratory Results
Total Bilirubin 0.5 mg/dl (0.2-1.3) 11/06/23 20:47
AST 32 U/L (14-36) 11/06/23 20:47
ALT 16 U/L (0-35) 11/06/23 20:47
Alkaline Phosphatase 66 U/L (38-126) 11/06/23 20:47
Troponin I < 0.012 ng/ml 11/06/23 21:36
Data Reviewed
-
Diagnostic Radiology: Image Personally Visualized and interpreted
Medical Tests (Nuc Med, Echo, EKG etc): Image Personally Visualized and interpreted
Lab Data: Labs Reviewed by me
Impression/Plan
-
IMPRESSION:
PLAN:
Pneumonia - Patient with RML infiltrate, cough, fever and shortness of breath. Negative for influenza. Clinically meets criteria for CAP. However has recent hospitalization x 48 hours. Did not tolerate oral augmentin well and developed worsening
SOB.
- admit to med surg
- given recent hospitalization, will continue zosyn for now
- supportive care with cough suppression and pain control
Afib - Stable
- continue ccb, beta blockade
- continue apixaban
GERD
- ppi daily
Hypothyroid
- continue levothyroxine
[2023-11-06] MEDS: VANCOCIN 200 IV (23:28)
[2023-11-07 01:08] VITALS: BMI 34.3
[2023-11-07 04:36] VITALS: BP 142/64
[2023-11-07] MEDS: TYLENOL 650 MG PO ×3 (05:27→22:31)
[2023-11-07] MEDS: ZOSYN 50 IV ×2 (05:28→10:15)
[2023-11-07] MEDS: SYNTHROID 88 MCG PO (05:28)
[2023-11-07 07:00] VITALS: BP 114/64
[2023-11-07] MEDS: CARDIZEM CD 120 MG PO (08:28)
[2023-11-07] MEDS: TOPROL XL 50 MG PO ×2 (08:28→20:00)
[2023-11-07] MEDS: PROTONIX 40 MG PO (08:28)
[2023-11-07] MEDS: VITAMIN C 500 MG PO (08:28)
[2023-11-07] MEDS: CLARITIN 10 MG PO (08:28)
[2023-11-07] MEDS: LEXAPRO 5 MG PO (08:28)
[2023-11-07] MEDS: ELIQUIS 5 MG PO ×2 (08:28→19:59)
[2023-11-07 08:29] LABS: Hematocrit 33.3 % (37.0-47.0); Hemoglobin 11.7 g/dL (12.0-16.0); Mean Corp Hgb Conc. 35.1 g/dL (33.0-37.0); Mean Corpuscular Hgb 31.4 pg (27.0-31.0); Mean Corpuscular Volume 89.3 fL (81.0-99.0); Mean Platelet Volume 9.9 fL (7.4-10.4); Platelet Count 175 10^3/uL (130-400); Red Blood Cell Count 3.73 10^6/uL (4.20-5.40); White Blood Cell Count 3.7 10^3/uL (4.8-10.8)
[2023-11-07] MEDS: MUCINEX PO ×2 (08:29→19:59)
[2023-11-07] MEDS: THERAGRAN 1 TABLET PO (08:29)
[2023-11-07 09:03] LABS: Blood Urea Nitrogen 9 mg/dl (7-17); Calcium 8.8 mg/dl (8.4-10.2); Carbon Dioxide 21 mmol/L (22-30); Chloride 105 mmol/L (98-107); Estimated Creatinine Clearance 92 ml/min; Glucose 105 mg/dl (70-99); Potassium 3.8 mmol/L (3.5-5.1); Sodium 136 mmol/L (135-145); eGFR > 60.00
[2023-11-07] MEDS: FLUSH (NSS) 1 FLUSH IV (10:15)
[2023-11-07 10:20] LABS: Procalcitonin < 0.05 ng/ml (0.0-0.25)
--- NOTE | 2023-11-07 13:05 | W.PN.HOSP.TC ---
Today's Communication/Plan
-
abx - switch to unasyn
f/u fever curve
Assessment / Plan
Assessment / Plan
Physical Exam
General: Well Developed, Well Nourished and No Apparent Distress
HEENT: NormoCephalic, Anicteric, Moist mucous membranes and Atraumatic
Respiratory: Clear and Crackles
Cardiac: S1/S2 and Regular Rhythm
Breast: Deferred by me
GI: Soft, Non Tender, Non Distended and Normal Bowel Sounds
Rectal: Deferred by Provider
Genito-urinary: Deferred by me
Musculoskeletal: No Clubbing, No Cyanosis and No Edema
Skin: Warm and Dry
Neuro: AO x 3
Hematologic/Lymphatic: No Lymphadenopathy
Psych: Calm
Pneumonia - Patient with RML infiltrate, cough, fever and shortness of breath. Negative for influenza. Clinically meets criteria for CAP. However has recent hospitalization x 48 hours. Did not tolerate oral augmentin well and developed worsening
SOB.
- admit to med surg
- given recent hospitalization, switch to unasyn
- supportive care with cough suppression and pain control
-F/u Sputum cultures
-Incentive [place]
-f/u fever curve
Afib - Stable
- continue ccb, beta blockade
- continue apixaban
GERD
- ppi daily
Hypothyroid
- continue levothyroxine
Anticipated Discharge: Within 24 hours
Subjective/Interval History
-
Date of Service: November 07, 2023
Feels better today
Objective Data
-
Labs:
Laboratory Results
11/07/23
06:14
WBC 3.7 L
Hgb 11.7 L
Hct 33.3 L
Plt Count 175
Sodium 136
Potassium 3.8
Chloride 105
Carbon Dioxide 21 L
BUN 9
Creatinine 0.6
Glucose 105 H
Calcium 8.8
Vital Signs:
Vital Signs
Temp Pulse Resp BP Pulse Ox
99.1 F 69 16 114/64 97
11/07/23 07:00 11/07/23 08:28 11/07/23 07:00 11/07/23 08:28 11/07/23 10:51
I&O
11/06/23 11/07/23 11/08/23
06:59 06:59 06:59
Intake Total 240 / 240
Balance 240 / 240
Review of Systems
-
History Source: Patient
All other systems: Not reviewed unless documented
Data Reviewed
-
Diagnostic Radiology: Image personally visualized and interpreted and Report Reviewed by me
Labs: Labs Reviewed by me
[2023-11-07] MEDS: UNASYN IV ×2 (14:32→19:56)
--- NOTE | 2023-11-07 15:46 | CM ---
Initial assessment completed with pt at bedside.
Pt is a 63yr old female admitted on OBS with Pneumonia.
SW issued OBS and pt signed.
Pt lives alone in a multi level home with 2 steps to enter.
Pt has no current/hx of DME/VN/SNF
PCP; Hanh Pena
Pharm; [facility] [address]
PLAN; dc to home with no needs identified
[2023-11-07 16:35] VITALS: BP 127/68
[2023-11-07] MEDS: PRAVACHOL 40 MG PO (21:13)
[2023-11-07 23:00] VITALS: BP 127/74
[2023-11-08] MEDS: UNASYN IV ×4 (01:20→20:15)
[2023-11-08] MEDS: SYNTHROID 88 MCG PO (05:46)
[2023-11-08 07:45] VITALS: BP 118/61
[2023-11-08] MEDS: CARDIZEM CD 120 MG PO (08:02)
[2023-11-08] MEDS: ELIQUIS 5 MG PO ×2 (08:02→20:15)
[2023-11-08] MEDS: THERAGRAN 1 TABLET PO (08:02)
[2023-11-08] MEDS: VITAMIN C 500 MG PO (08:02)
[2023-11-08] MEDS: PROTONIX 40 MG PO (08:02)
[2023-11-08] MEDS: TOPROL XL 50 MG PO ×2 (08:02→20:15)
[2023-11-08] MEDS: CLARITIN 10 MG PO (08:03)
[2023-11-08] MEDS: MUCINEX PO ×2 (08:03→20:16)
[2023-11-08] MEDS: FLUSH (NSS) 1 FLUSH IV ×2 (08:03→13:35)
[2023-11-08] MEDS: LEXAPRO 5 MG PO (08:03)
[2023-11-08 08:27] LABS: Hematocrit 38.6 % (37.0-47.0); Hemoglobin 13.1 g/dL (12.0-16.0); Mean Corp Hgb Conc. 33.9 g/dL (33.0-37.0); Mean Corpuscular Hgb 31.4 pg (27.0-31.0); Mean Corpuscular Volume 92.6 fL (81.0-99.0); Mean Platelet Volume 9.8 fL (7.4-10.4); Platelet Count 163 10^3/uL (130-400); Red Blood Cell Count 4.17 10^6/uL (4.20-5.40); Red Cell Dist. Width 13.2 % (11.5-14.5); White Blood Cell Count 3.5 10^3/uL (4.8-10.8)
[2023-11-08 08:51] LABS: ALT (SGPT) 17 U/L (0-35); AST (SGOT) 34 U/L (14-36); Albumin 4.2 g/dl (3.5-5.0); Alkaline Phosphatase 53 U/L (38-126); Blood Urea Nitrogen 10 mg/dl (7-17); Calcium 9.1 mg/dl (8.4-10.2); Carbon Dioxide 27 mmol/L (22-30); Chloride 104 mmol/L (98-107); Estimated Creatinine Clearance 92 ml/min; Glucose 89 mg/dl (70-99); Potassium 4.3 mmol/L (3.5-5.1); Sodium 142 mmol/L (135-145); Total Bilirubin 0.6 mg/dl (0.2-1.3); Total Protein 7.1 g/dl (6.3-8.2); eGFR > 60.00
--- NOTE | 2023-11-08 11:45 | W.PN.HOSP.TC ---
Today's Communication/Plan
-
f/u fever curve
cont abx
f/u cultures including blood and sputum
Assessment / Plan
Assessment / Plan
Physical Exam
General: Well Developed, Well Nourished and No Apparent Distress
HEENT: NormoCephalic, Anicteric, Moist mucous membranes and Atraumatic
Respiratory: Clear and Crackles
Cardiac: S1/S2 and Regular Rhythm
Breast: Deferred by me
GI: Soft, Non Tender, Non Distended and Normal Bowel Sounds
Rectal: Deferred by Provider
Genito-urinary: Deferred by me
Musculoskeletal: No Clubbing, No Cyanosis and No Edema
Skin: Warm and Dry
Neuro: AO x 3
Hematologic/Lymphatic: No Lymphadenopathy
Psych: Calm
Sepsis
Pneumonia - Patient with RML infiltrate, cough, fever and shortness of breath. Negative for influenza. Clinically meets criteria for CAP. However has recent hospitalization x 48 hours. Did not tolerate oral augmentin well and developed worsening
SOB.
- given recent hospitalization, switch to unasyn
- F/u Cultures due to fever
- supportive care with cough suppression and pain control
-F/u Sputum cultures
-Incentive [place]
-f/u fever curve
Afib - Stable
- continue ccb, beta blockade
- continue apixaban
GERD
- ppi daily
Hypothyroid
- continue levothyroxine
Anticipated Discharge: Within 24 hours
Subjective/Interval History
-
Date of Service: November 08, 2023
Had fever, chills, diaphoresis and temperature 101.6 yesterday night
Objective Data
-
Labs:
Laboratory Results
11/08/23
06:05
WBC 3.5 L
Hgb 13.1
Hct 38.6
Plt Count 163
Sodium 142
Potassium 4.3
Chloride 104
Carbon Dioxide 27
BUN 10
Creatinine 0.6
Glucose 89
Calcium 9.1
Total Bilirubin 0.6
AST 34
ALT 17
Alkaline Phosphatase 53
Vital Signs:
Vital Signs
Temp Pulse Resp BP Pulse Ox
98.6 F 65 16 118/61 96
11/08/23 07:45 11/08/23 08:02 11/08/23 07:45 11/08/23 08:02 11/08/23 10:39
I&O
11/07/23 11/08/23 11/09/23
06:59 06:59 06:59
Intake Total 240 / 240 1889
Balance 240 / 240 1889
Review of Systems
-
History Source: Patient
All other systems: Not reviewed unless documented
Data Reviewed
-
Diagnostic Radiology: Image personally visualized and interpreted and Report Reviewed by me
Labs: Labs Reviewed by me
[2023-11-08 15:45] VITALS: BP 116/64
[2023-11-08] MEDS: TESSALON PERLES 200 MG PO (20:15)
[2023-11-08] MEDS: PRAVACHOL 40 MG PO (22:17)
[2023-11-08 23:21] VITALS: BP 126/75
[2023-11-08] MEDS: TYLENOL 650 MG PO (23:22)
[2023-11-09] MEDS: UNASYN IV ×2 (01:40→09:03)
[2023-11-09] MEDS: SYNTHROID 88 MCG PO (05:10)
[2023-11-09 05:50] LABS: Hematocrit 33.7 % (37.0-47.0); Hemoglobin 11.7 g/dL (12.0-16.0); Mean Corp Hgb Conc. 34.7 g/dL (33.0-37.0); Mean Corpuscular Hgb 31.1 pg (27.0-31.0); Mean Corpuscular Volume 89.6 fL (81.0-99.0); Mean Platelet Volume 9.3 fL (7.4-10.4); Platelet Count 157 10^3/uL (130-400); Red Blood Cell Count 3.76 10^6/uL (4.20-5.40); Red Cell Dist. Width 12.9 % (11.5-14.5); White Blood Cell Count 3.4 10^3/uL (4.8-10.8)
[2023-11-09 06:13] LABS: Blood Urea Nitrogen 11 mg/dl (7-17); Calcium 8.7 mg/dl (8.4-10.2); Carbon Dioxide 25 mmol/L (22-30); Chloride 105 mmol/L (98-107); Estimated Creatinine Clearance 92 ml/min; Glucose 95 mg/dl (70-99); Potassium 4.1 mmol/L (3.5-5.1); Sodium 138 mmol/L (135-145); eGFR > 60.00
[2023-11-09] MEDS: TYLENOL 650 MG PO ×4 (06:36→23:57)
[2023-11-09 07:35] VITALS: BP 117/58
[2023-11-09] MEDS: ELIQUIS 5 MG PO ×2 (09:02→19:54)
[2023-11-09] MEDS: MUCINEX 600 MG PO (09:03)
[2023-11-09] MEDS: VITAMIN C 500 MG PO (09:03)
[2023-11-09] MEDS: TOPROL XL 50 MG PO ×2 (09:03→19:56)
[2023-11-09] MEDS: LEXAPRO 5 MG PO (09:03)
[2023-11-09] MEDS: THERAGRAN 1 TABLET PO (09:03)
[2023-11-09] MEDS: PROTONIX 40 MG PO (09:03)
[2023-11-09] MEDS: CARDIZEM CD 120 MG PO (09:03)
[2023-11-09] MEDS: CLARITIN 10 MG PO (09:03)
--- NOTE | 2023-11-09 10:23 | W.PN.HOSP.TC ---
Today's Communication/Plan
-
Switch antibiotics to cover community-acquired pneumonia.
Assessment / Plan
Assessment / Plan
Sepsis
RLL Pneumonia
Preceding sinusitis symptoms
Started with a sinusitis symptoms over a week ago. Sinus symptoms are better but now she is having more cough, fever and shortness of breath. She has a right lower lobe infiltrate concerning for pneumonia. Her initial labs showing leukopenia
suggest more viral but with recurrent fevers past week of what looks like a viral infection makes it more concerning for bacterial pneumonia. Procalcitonin on admission was negative. She is having recurrent fever. She is on Unasyn which would
probably not cover community-acquired bacteria. Check a repeat procalcitonin. Broaden antibiotics for community-acquired pneumonia.Follow response .
Afib - Stable
- continue ccb, beta blockade
- continue apixaban
- Follow on tele
Hypertrophic cardiomyopathy with ICD in place. Clinically not in heart failure.
GERD
- ppi daily
Hypothyroid
- continue levothyroxine
Anticipated Discharge: 24 - 48 hours
Subjective/Interval History
-
Date of Service: November 09, 2023
[place] her fever last night. She did not feel well with the fever.
2 days of consecutive fever.
Patient's symptoms started last weekend.
Started with sinus symptoms more like a sinus pressure with dizziness with movement of her head. Not much of sinus discharge. No fevers then.
Had a telehealth visit on Thursday where and she was prescribed Augmentin which caused GI symptoms.
Continued symptom ,cough developed and then she started to become short of breath with some wheezing also saw PCP, was prescribed amoxicillin.
With continued shortness of breath came into the hospital.
She feels better in general and her sinus symptoms are better.
the cough is present little more productive. Breathing is okay at rest.
She Now has fever 2 consecutive days.
Objective Data
-
Labs:
Laboratory Results
11/09/23
05:33
WBC 3.4 L
Hgb 11.7 L
Hct 33.7 L
Plt Count 157
Sodium 138
Potassium 4.1
Chloride 105
Carbon Dioxide 25
BUN 11
Creatinine 0.6
Glucose 95
Calcium 8.7
Vital Signs:
Vital Signs
Temp Pulse Resp BP Pulse Ox
98.1 F 73 16 117/58 94
11/09/23 07:35 11/09/23 09:03 11/09/23 07:35 11/09/23 09:03 11/09/23 07:35
I&O
11/08/23 11/09/23 11/10/23
06:59 06:59 06:59
Intake Total 1889 1620 / 1620
Balance 1889 162 / 162
Review of Systems
-
EENT: Denies Sore Throat
Cardiac: Denies Chest Pain or Palpitations
Neuro: Denies Dizzy
Physical Exam
-
General: No Apparent Distress
HEENT: Moist Mucous Membranes
Respiratory: Wheezes (few focal to RLL ), Crackles (focal to right lower zone ) and Non Labored Respirations; Negative Accessory Resp Muscle Use
Cardiac: Regular Rhythm and S1/S2
GI: Soft
Musculoskeletal: No Edema
Neuro: AO x 3
Psych: Calm
Data Reviewed
-
Labs: Labs Reviewed by me
[2023-11-09] MEDS: VIBRAMYCIN 100 MG PO ×2 (11:28→19:54)
[2023-11-09] MEDS: ROCEPHIN 1000 MG IV (11:29)
[2023-11-09] MEDS: STERILE WATER FOR INJECTION 10 ML IV (11:29)
[2023-11-09 16:03] VITALS: BP 122/68
[2023-11-09 19:26] VITALS: BP 131/68
[2023-11-09] MEDS: ROBITUSSIN DM 10 ML PO (19:54)
[2023-11-09] MEDS: MUCINEX PO (19:54)
[2023-11-09] MEDS: PRAVACHOL 40 MG PO (21:16)
[2023-11-09 23:21] VITALS: BP 127/74
[2023-11-10 03:22] VITALS: BP 129/75
[2023-11-10] MEDS: SYNTHROID 88 MCG PO (05:23)
[2023-11-10 07:30] VITALS: BP 122/70
[2023-11-10 07:54] LABS: Hematocrit 37.1 % (37.0-47.0); Hemoglobin 12.7 g/dL (12.0-16.0); Mean Corp Hgb Conc. 34.2 g/dL (33.0-37.0); Mean Corpuscular Hgb 31.4 pg (27.0-31.0); Mean Corpuscular Volume 91.6 fL (81.0-99.0); Mean Platelet Volume 9.6 fL (7.4-10.4); Platelet Count 176 10^3/uL (130-400); Red Blood Cell Count 4.05 10^6/uL (4.20-5.40); Red Cell Dist. Width 12.9 % (11.5-14.5); White Blood Cell Count 3.2 10^3/uL (4.8-10.8)
[2023-11-10 08:29] LABS: Blood Urea Nitrogen 10 mg/dl (7-17); Carbon Dioxide 24 mmol/L (22-30); Chloride 103 mmol/L (98-107); Estimated Creatinine Clearance 92 ml/min; Glucose 90 mg/dl (70-99); Potassium 4.1 mmol/L (3.5-5.1); Sodium 140 mmol/L (135-145); eGFR > 60.00
[2023-11-10] MEDS: CLARITIN 10 MG PO (08:44)
[2023-11-10] MEDS: VIBRAMYCIN 100 MG PO (08:44)
[2023-11-10] MEDS: MUCINEX 600 MG PO (08:44)
[2023-11-10] MEDS: PROTONIX 40 MG PO (08:44)
[2023-11-10] MEDS: LEXAPRO 5 MG PO (08:44)
[2023-11-10] MEDS: TOPROL XL 50 MG PO (08:44)
[2023-11-10] MEDS: CARDIZEM CD 120 MG PO (08:44)
[2023-11-10] MEDS: ELIQUIS 5 MG PO (08:45)
[2023-11-10] MEDS: THERAGRAN PO (08:47)
[2023-11-10] MEDS: VITAMIN C PO (08:47)
[2023-11-10 11:30] VITALS: BP 118/62
[2023-11-10] MEDS: ROCEPHIN 1000 MG IV (11:57)
[2023-11-10] MEDS: STERILE WATER FOR INJECTION 10 ML IV (11:57)
--- NOTE | 2023-11-10 13:47 | W.DS.TRANS ---
DC Summary - Resident Doctor
-
Discharge Instructions:
Discharge Diagnosis/Procedures RML pneumonia
Diet Low Cholesterol
Activity As tolerated
Driving Restrictions As prior to admission
Others Tests Chest x-ray two-view in 3 to 4 weeks time-
arrange through your PCP
Instructions:
Stand-Alone Forms:
Changes to Home Medications: Yes
Discharge Medications:
DC Medications w/original date entered in [facility]
loratadine 10 mg tablet 10 mg PO DAILY Allergies 01/28/08
escitalopram oxalate 5 mg tablet 5 mg PO DAILY Mental Health/Anxiety 06/04/16
ascorbic acid (vitamin C) 500 mg tablet (Vitamin C) 500 mg PO DAILY Supplement 09/30/23
levothyroxine 88 mcg tablet (Synthroid) 88 mcg PO DAILY Thyroid 09/30/23
metoprolol succinate 50 mg tablet,extended release 24 hr (Toprol XL) 50 mg PO BID Blood Pressure 09/30/23
omeprazole 20 mg tablet,delayed release 20 mg PO DAILY GERD 09/30/23
pravastatin 80 mg tablet 40 mg PO HS High Cholesterol 09/30/23
therapeutic multivitamin 1 tab PO DAILY Supplement 09/30/23
turmeric 400 mg capsule 400 mg PO DAILY Supplement 09/30/23
apixaban 5 mg tablet (Eliquis) 5 mg PO BID 30 days #60 tabs 10/01/23
diltiazem HCl 120 mg capsule,extended release 24 hr 120 mg PO DAILY 30 days #30 caps 10/01/23
cefuroxime axetil 500 mg tablet 500 mg PO BID #12 tabs 11/10/23
dextromethorphan-guaifenesin 10 mg-100 mg/5 mL oral syrup 10 ml PO Q4HPRN PRN cough #237 mL 11/10/23
doxycycline hyclate 100 mg capsule 100 mg PO Q12 #8 caps 11/10/23
Home Medication Changes
New medication-doxycycline and cefuroxime
Pending Results: No
--- NOTE | 2023-11-10 14:13 | CM ---
CM reviewed chart and noted dc order.
Bedside meeting with pt
No dc needs noted
Friend bedside already for transport home
Discharge Disposition- home no needs
== END 2023-11-10 14:54 | disposition home or self-care (01) | DRG 871 ==
LOC: 4 EAST ACU 11:21
PROVIDERS: Clinical Nurse Specialist Family Health; Emergency Medicine; Internal Medicine; ADMITTING PHYSICIAN Internal Medicine; ATTENDING PHYSICIAN Internal Medicine; EMERGENCY PHYSICIAN Emergency Medicine; FAMILY PHYSICIAN Internal Medicine
DX: A41.9 Sepsis, unspecified organism (principal); J18.9 Pneumonia, unspecified organism; I42.2 Other hypertrophic cardiomyopathy; Z87.891 Personal history of nicotine dependence; I48.91 Unspecified atrial fibrillation; K21.9 Gastro-esophageal reflux disease without esophagitis; E03.9 Hypothyroidism, unspecified; Z79.01 Long term (current) use of anticoagulants; Z95.0 Presence of cardiac pacemaker; Z11.52 Encounter for screening for COVID-19
CPT/HCPCS: 71046; 80048; 80053; 84145; 84484; 85025; 85027; 87040; 87070; 87205; 87502; 87811; 93005; 94640; 96365; 96367; 96375; 99285

== ENCOUNTER 2023-11-20 21:08 | Emergency (ER) | payer OTHER, SELFPAY ==
[2023-11-20] VITALS (10 sets, daily range): BP systolic 97–148; BP diastolic 58–95; BMI 34.6
[2023-11-20 21:48] LABS: % Basophils 0.7 % (0-2); % Eosinophils 1.2 % (0-6); % Immature Granulocytes 0.4 % (0-0.5); % Monocytes 11.6 % (1.7-9.3); % Neutrophils 47.1 % (42.2-75.2); Absolute Basophils 0.1 10^3/uL (0-0.2); Absolute Eosinophils 0.1 10^3/uL (0-0.7); Absolute Monocytes 1.2 10^3/uL (0.1-0.6); Absolute Neutrophils 4.8 10^3/uL (1.4-6.5); Hematocrit 38.6 % (37.0-47.0); Hemoglobin 14.3 g/dL (12.0-16.0); Mean Corpuscular Hgb 31.8 pg (27.0-31.0); Mean Corpuscular Volume 85.8 fL (81.0-99.0); Mean Platelet Volume 8.9 fL (7.4-10.4); Nucleated Red Blood Cells % 0 %; Platelet Count 327 10^3/uL (130-400); Red Cell Dist. Width 12.6 % (11.5-14.5); White Blood Cell Count 10.3 10^3/uL (4.8-10.8)
[2023-11-20] MEDS: CARDIZEM 10 MG IV (21:51)
[2023-11-20] MEDS: CARDIZEM 125 IV (21:52)
[2023-11-20 21:59] LABS: ALT (SGPT) 26 U/L (0-35); AST (SGOT) 39 U/L (14-36); Albumin 4.9 g/dl (3.5-5.0); Alkaline Phosphatase 83 U/L (38-126); Blood Urea Nitrogen 23 mg/dl (7-17); Calcium 9.8 mg/dl (8.4-10.2); Carbon Dioxide 20 mmol/L (22-30); Chloride 103 mmol/L (98-107); Estimated Creatinine Clearance 79 ml/min; Glucose 92 mg/dl (70-99); Potassium 4.3 mmol/L (3.5-5.1); Sodium 137 mmol/L (135-145); Total Bilirubin 0.5 mg/dl (0.2-1.3); Total Protein 8.3 g/dl (6.3-8.2); eGFR > 60.00
[2023-11-20] MEDS: NSS 1000 IV (22:19)
--- NOTE | 2023-11-20 22:35 | ED.GENMED ---
History of Present Illness
General
Chief Complaint: Heart Rate Problem
Source: patient and family
Exam Limitations: none
Time Seen by Provider: 11/20/23 21:20
Travel History
Have you had any contact with someone who has COVID-19?: No
Do you have any symptoms of coronavirus? Fever > 100 degrees, chills, cough, shortness of breath, sore throat, loss of taste or smell, muscle aches, or headache?: No
History of Present Illness
History of Present Illness:
63-year-old female presents stating she is in A-fib. Patient states she has a history of A-fib. Last time she went to A-fib she got shocked by her defibrillator because her rates were in the 200s. Patient with history of hypertrophic
cardiomyopathy. The patient states that she knows she comes in because she feels her heart pounding. She denies feeling short of breath. Is on diltiazem and Eliquis. Also on metoprolol. Patient states she has been taking her Eliquis daily and
has not missed any doses.
Past History
Past History
ED Past Medical History: Arrthythmia, GERD, Hypothyroidism and Other (Hypertrophic cardiomyopathy, Vertigo, IBS)
ED Past Surgical History: Appendectomy, Cardiac (Pacer/Defib) and
Social History
Tobacco: Former smoker
Alcohol: None
Drug: None
Personal:
Living: with family
Employment: Employed
Phy Exam
Physical Exam
Physical Exam:
CONSTITUTIONAL Patient alert and oriented to person, place and time. Well-appearing. Vital signs reviewed.
HEAD atraumatic, normocephalic.
EYES eyelids normal to inspection, Extraocular muscles intact, Conjunctiva normal, Sclera normal.
NECK normal range of motion, Trachea midline, no jugular venous distention.
RESPIRATORY CHEST No respiratory distress noted, Chest expansion equal, Bilateral breath sounds clear.
CARDIOVASCULAR irregularly irregular tachycardic
ABDOMEN No distention.
BACK normal inspection, no obvious deformities
UPPER EXTREMITY range of motion normal, Motor strength normal, no cyanosis, no edema.
LOWER EXTREMITY range of motion normal, Motor strength normal, no cyanosis, no edema.
NEURO Speech normal, No focal motor deficits, Dalton coma scale 15, Memory normal, Cranial Nerves intact to screening exam.
SKIN skin warm, dry, and normal in color.
PSYCHIATRIC patient oriented to person place and time, Normal affect.
Course
Orders/Labs/Results
Orders:
Orders
11/20/23 21:09
EKG [Electrocardiogram (*1)] Urgent
Reason for Study: Palpitations
EKG- Treatment ONCE
11/20/23 21:40
CMP [Comprehensive Metabolic Panel] Urgent
Complete Blood Count/With Diff Urgent
Magnesium Urgent
11/20/23 21:45
Diltiazem 125 mg/125 ml Nss [Cardizem] 125 mg in 125 ml IV NOW
Initial dose in mg/hr, then titrate:: 5
Titrate to keep:: Heart rate 80-100 bpm
Titrate by mg/hr:: 5 mg/hr
Frequency of titrations (minutes):: 15
Maximum dose in mg/hr:: 15
Diltiazem HCl [Cardizem] 10 mg IV NOW STA
11/20/23 22:08
0.9% Sodium Chloride 1000 ml [Nss] 1,000 ml IV BOLUS
11/20/23 23:23
EKG [Electrocardiogram (*1)] Stat
Reason for Study: Palpitations
EKG- Treatment ONCE
11/20/23 23:31
Electrocardiogram (*1) Urgent
Reason for Study: Palpitations
EKG- Treatment ONCE
Abnormal Lab Results
11/20/23
21:40
MCH 31.8 H pg
(27.0-31.0)
Absolute Lymphs (auto) 4.0 H 10^3/uL
(1.2-3.4)
Absolute Monos (auto) 1.2 H 10^3/uL
(0.1-0.6)
Monocytes % 11.6 H %
(1.7-9.3)
Carbon Dioxide 20 L mmol/L
(22-30)
BUN 23 H mg/dl
(7-17)
AST 39 H U/L
(14-36)
Total Protein 8.3 H g/dl
(6.3-8.2)
11/20/23 21:40
11/20/23 21:40
Vital Signs
Initial and Last Documented VS:
Initial Vital Signs
Temp Pulse Resp BP Pulse Ox
97.3 F 132 20 148/81 98
11/20/23 21:10 11/20/23 21:10 11/20/23 21:10 11/20/23 21:10 11/20/23 21:10
Last Documented Vital Signs
Temp Pulse Resp BP Pulse Ox
97.3 F 68 21 102/58 98
11/20/23 21:10 11/20/23 23:30 11/20/23 23:30 11/20/23 23:30 11/20/23 21:10
MDM/Problems Addressed
MDM/Problems Addressed:
Atrial fibrillation with RVR
*Pulse Oximetry
Patient hypoxic: no
*EKG
Interpreted by ED Provider?: Yes
Interpretation: abnormal
Rate: tachycardiac
Rhythm: a-fib
[place]: normal axis
QRS Pattern: left vent hypertrophy
Ischemia: ST depression (Anterior lateral leads)
*Lathe Spotter Interpretation
Rate: tachycardiac
Interpretation: abnormal
Rhythm: a-fib
*Critical Care Note
Total Time (30-74mins, 75-104mins- exclusive of procedures): 40 minutes
Data Reviewed
Review of Other/Old Records Reveals: Testing (Echocardiogram reviewed from September 2023 showing asymmetric septal hypertrophy with interventricular septum measuring 2.2 cm. Ejection fraction 70 to 75%)
Source: patient
Prescriptions/Medications Considered But Not Given:
considered cardioversion, but converted on with AV blockade
Patient Management
Escalation/DeEscalation of care consider admission/obs:
63-year-old female with history of hypertrophic cardiomyopathy presented in A-fib. After diltiazem drip she has not converted on her own. Initially converted to a paced rhythm which I suspect was underlying A-fib but now has converted fully and is
in normal sinus rhythm. Patient states she was told in the past to go to twice daily diltiazem and will start that tomorrow. f/u with Dr Stiles
ED Attending Note
-
Portions of this chart may have been created with voice recognition software.� Occasional wrong word or��sound alike� substitutions may have occurred due to the inherent limitations of voice recognition software.
Discharge Plan
Departure
Patient Disposition: Home (Routine Discharge)
Date of Disposition: 11/21/23
Time of Disposition: 00:03
Patient with high blood pressure during this ER visit?: No
Discharge Problem:
Atrial fibrillation with RVR
Instructions: Atrial Fibrillation (DC)
Prescriptions:
No Action
loratadine 10 MG tablet
10 mg PO DAILY
escitalopram oxalate 5 MG tablet
5 mg PO DAILY
metoprolol succinate [Toprol XL] 50 mg Tablet Extended Release 24 Hr
50 mg PO BID
pravastatin 80 mg Tablet
40 mg PO HS
ascorbic acid (vitamin C) [Vitamin C] 500 mg Tablet
500 mg PO DAILY
omeprazole 20 mg Tablet,Delayed Release (Dr/Ec)
20 mg PO DAILY
turmeric 400 mg Capsule
400 mg PO DAILY
levothyroxine [Synthroid] 88 mcg Tablet
88 mcg PO DAILY
therapeutic multivitamin Tablet
1 tab PO DAILY
diltiazem HCl 120 mg Capsule,Extended Release 24hr
120 mg PO DAILY 30 Days Qty: 30 0RF
Eliquis 5 mg Tablet
5 mg PO BID 30 Days Qty: 60 0RF
dextromethorphan-guaifenesin 10-100 mg/5 mL Syrup
10 ml PO Q4HPRN PRN (Reason: cough) Qty: 237 0RF
cefuroxime axetil 500 mg tablet
500 mg PO BID Qty: 12 0RF
doxycycline hyclate 100 mg Capsule
100 mg PO Q12 Qty: 8 0RF
Referrals:
Hanh Pena MD [Family Provider] -
Activity Restrictions/Additional Instructions:
Please see Dr. Stiles in follow-up as planned. Return immediately for worsening symptoms, chest pain, shortness of breath or any other concerns
Interventions
Interventions:
*Risk Screen - Suicide Last Done: 11/20/23 21:10
*General Assessment Last Done: 11/20/23 21:10
*Neglect/Abuse Screening Last Done: 11/20/23 21:10
ED- Fall Risk Assessment Last Done: 11/20/23 21:35
ED- Cardiac Assessment Last Done: 11/20/23 21:35
ED- Pulmonary Assessment Last Done: 11/20/23 21:35
Discharge Date and Time
Print Language: WELSH
[2023-11-21] VITALS: BP 103/64
== END 2023-11-21 00:12 | disposition home or self-care (01) ==
LOC: EMR 21:08
PROVIDERS: EMERGENCY PHYSICIAN Emergency Medicine; FAMILY PHYSICIAN Internal Medicine
DX: I48.91 Unspecified atrial fibrillation (principal); Z87.891 Personal history of nicotine dependence; I42.2 Other hypertrophic cardiomyopathy
CPT/HCPCS: 99284; 96374; 96361; 80053; 83735; 85025; 93005

== ENCOUNTER 2023-11-21 13:00 | Emergency (ER) | payer OTHER, SELFPAY ==
[2023-11-21 13:02] VITALS: BP 126/53
[2023-11-21 13:16] VITALS: BMI 37.1
[2023-11-21 13:17] VITALS: BP 104/66
[2023-11-21 13:46] LABS: % Basophils 0.6 % (0-2); % Eosinophils 1.2 % (0-6); % Immature Granulocytes 0.3 % (0-0.5); % Lymphocytes 28.7 % (20.5-51.1); % Neutrophils 61.2 % (42.2-75.2); Absolute Eosinophils 0.1 10^3/uL (0-0.7); Absolute Monocytes 0.6 10^3/uL (0.1-0.6); Absolute Neutrophils 4.2 10^3/uL (1.4-6.5); Hematocrit 36.3 % (37.0-47.0); Hemoglobin 12.7 g/dL (12.0-16.0); Mean Corpuscular Hgb 31.5 pg (27.0-31.0); Mean Corpuscular Volume 90.1 fL (81.0-99.0); Nucleated Red Blood Cells % 0 %; Platelet Count 270 10^3/uL (130-400); Red Blood Cell Count 4.03 10^6/uL (4.20-5.40); Red Cell Dist. Width 12.6 % (11.5-14.5); White Blood Cell Count 6.9 10^3/uL (4.8-10.8)
--- NOTE | 2023-11-21 13:47 | ED.GENMED ---
History of Present Illness
General
Chief Complaint: Breathing Problem
Source: patient
Exam Limitations: none
Time Seen by Provider: 11/21/23 13:21
Travel History
Have you had any contact with someone who has COVID-19?: No
Do you have any symptoms of coronavirus? Fever > 100 degrees, chills, cough, shortness of breath, sore throat, loss of taste or smell, muscle aches, or headache?: Yes
Symptoms:: SOB
History of Present Illness
History of Present Illness:
See MDM
Past History
Past History
ED Past Medical History: Arrthythmia, GERD, Hypothyroidism and Other (Hypertrophic cardiomyopathy, Vertigo, IBS)
ED Past Surgical History: Appendectomy, Cardiac (Pacer/Defib) and
Social History
Tobacco: Former smoker
Alcohol: None
Drug: None
Personal:
Living: with family
Employment: Employed
Phy Exam
Physical Exam
Physical Exam:
See MDM
Scores
Heart Failure Risk
Heart Failure Risk Score: Not Applicable
Course
Orders/Labs/Results
Orders:
Orders
11/21/23 13:02
ECG [Electrocardiogram (*1)] Urgent
Reason for Study: Shortness of Breath
EKG- Treatment ONCE
11/21/23 13:27
Complete Blood Count/With Diff Urgent
Comprehensive Metabolic Panel Urgent
D-Dimer Urgent
Magnesium Urgent
NT-proBNP Urgent
PTT Urgent
Prothrombin Time Urgent
TSH Reflex To Free T4 Urgent
Troponin I Urgent
11/21/23 13:47
Consult Cardiology [CARDIOLOGY CONSULT] Urgent
Consulting Provider: Kyle Smith
Was physician already notified: Yes
11/21/23 14:57
CR Chest - 2 Views Routine
Comment:
Reason For Exam: Follow-up pneumonia
11/21/23 15:27
Troponin I Urgent
11/21/23 16:10
Amiodarone [Pacerone] 200 mg PO NOW STA
Abnormal Lab Results
11/21/23 11/21/23
13:27 15:27
RBC 4.03 L 10^6/uL
(4.20-5.40)
Hct 36.3 L %
(37.0-47.0)
MCH 31.5 H pg
(27.0-31.0)
PT 15.7 H Sec
(11.4-14.6)
Chloride 108 H mmol/L
(98-107)
BUN 20 H mg/dl
(7-17)
Glucose 122 H mg/dl
(70-99)
Troponin I 0.163 H* ng/ml 0.168 H* ng/ml
11/21/23 13:27
11/21/23 13:27
Vital Signs
Initial and Last Documented VS:
Initial Vital Signs
Temp Pulse Resp BP Pulse Ox
97.8 F 54 22 126/53 97
11/21/23 13:02 11/21/23 13:02 11/21/23 13:02 11/21/23 13:02 11/21/23 13:02
Last Documented Vital Signs
Temp Pulse Resp BP Pulse Ox
97.8 F 63 16 112/78 96
11/21/23 13:02 11/21/23 16:28 11/21/23 15:00 11/21/23 16:28 11/21/23 15:00
MDM/Problems Addressed
Differential Diagnosis Includes:
HPI and MDM Narrative:
63-year-old female presenting with increased shortness of breath with exertion. She does have a history of hypertrophic cardiomyopathy. She was seen in the emergency department yesterday and had A-fib with RVR. She did auto convert to sinus
rhythm while on the diltiazem drip. Patient states symptoms have been worsening since today. She is concerned because her heart rate is lower than normal.
Patient is on a beta-annabelle and Cardizem.
On exam, she is well-appearing nontoxic but heart rate is ranging from 40s-50s and is intermittently paced.
Will check pacemaker and have cardiology evaluate
Physical exam
General: Well appearing and non-toxic
HEENT: protecting airway
Neck: appears supple
CV: No evidence of cyanosis. Bradycardic
Resp: No accessory muscle use
Abd: Non-distended
Extremities: No deformities. No leg edema
Neuro: alert
Psych: Normal affect
Skin: Intact
Problems Addressed including Acute and Chronic Conditions affecting care:
1. Symptomatic bradycardia
Acuity: acute
Prognosis: stable
Details: Will have cardiology evaluate
Updates
Cardiology did evaluate patient. He evaluated the pacemaker and it appears to be over sensing T waves which have allowed the patient to become more bradycardic before the pacemaker kicked in. He switched some of the pacemaker settings and
suggested starting amiodarone. Patient was found to have an elevated troponin but this is likely related to her A-fib with RVR yesterday. Repeat troponin had negligible change. Patient feels comfortable going home
Differential Diagnosis (but not limited to): Symptomatic bradycardia, A-fib, adverse medication reaction
Testing considered: CT PE but will obtain D-dimer first as screening exam
Drug therapy (if applicable): OTC meds, please see d/c instruction regarding Rx drugs
Amount and/or Complexity of Data Reviewed
Clinical info obtained from: Patient
External data reviewed: N/A
Labs I independently reviewed (but not limited to): Elevated troponin
Radiology: X-ray independently reviewed: Chest x-ray shows improving pneumonia
Pulse Ox: not hypoxic
EKG independently reviewed: Sinus bradycardia, LVH, no STEMI
Color Consultant: N/A
Critical Care: N/A
Risk of Complication:
Social Determinants of health: Good social support
Discussed with other providers: Cardiology
Escalation of Care includes Admit/Obs: After being observed in the Emergency Department, pt stable for discharge.
Occasional wrong word or 'sound a like' substitutions may have occurred due to the inherent limitations of voice recognition software. Read the chart carefully and recognize, using context, where substitutions have occurred.
*Critical Care Note
Total Time (30-74mins, 75-104mins- exclusive of procedures): Not Applicable
ED Attending Note
-
Portions of this chart may have been created with voice recognition software.� Occasional wrong word or��sound alike� substitutions may have occurred due to the inherent limitations of voice recognition software.
Discharge Plan
Departure
Patient Disposition: Home (Routine Discharge)
Date of Disposition: 11/21/23
Time of Disposition: 16:32
Patient with high blood pressure during this ER visit?: No
Discharge Problem:
Symptomatic bradycardia
Prescriptions:
New
amiodarone 200 mg tablet
200 mg PO BID Qty: 60 0RF
No Action
loratadine 10 MG tablet
10 mg PO DAILY
escitalopram oxalate 5 MG tablet
5 mg PO DAILY
metoprolol succinate [Toprol XL] 50 mg Tablet Extended Release 24 Hr
50 mg PO BID
pravastatin 80 mg Tablet
40 mg PO HS
ascorbic acid (vitamin C) [Vitamin C] 500 mg Tablet
500 mg PO DAILY
omeprazole 20 mg Tablet,Delayed Release (Dr/Ec)
20 mg PO DAILY
turmeric 400 mg Capsule
400 mg PO DAILY
levothyroxine [Synthroid] 88 mcg Tablet
88 mcg PO DAILY
therapeutic multivitamin Tablet
1 tab PO DAILY
diltiazem HCl 120 mg Capsule,Extended Release 24hr
120 mg PO DAILY 30 Days Qty: 30 0RF
acetaminophen [Tylenol] 325 mg Tablet
650 mg PO Q4HPRN PRN (Reason: mild pain)
Eliquis 5 mg Tablet
5 mg PO BID
Referrals:
Hanh Pena MD [Family Provider] -
Activity Restrictions/Additional Instructions:
As we discussed, the assembly manager change some of your pacemaker settings. This will hopefully allow the pacemaker to kick in before your heart rate gets too low. We added amiodarone to your heart rate control. Please call Dr. Stiles for first
available follow-up. Return for worsening symptoms.
Interventions
Interventions:
*Risk Screen - Suicide Last Done: 11/21/23 13:02
*General Assessment Last Done: 11/21/23 13:02
*Neglect/Abuse Screening Last Done: 11/21/23 13:02
ED- Fall Risk Assessment Last Done: 11/21/23 13:16
*ED COVID-19 Vaccine History Last Done: 11/21/23 13:15
ED- Cardiac Assessment Last Done: 11/21/23 13:16
ED- Pulmonary Assessment Last Done: 11/21/23 13:16
Discharge Date and Time
Print Language: SWEDISH
[2023-11-21 13:48] LABS: ALT (SGPT) 24 U/L (0-35); AST (SGOT) 36 U/L (14-36); Albumin 4.2 g/dl (3.5-5.0); Alkaline Phosphatase 64 U/L (38-126); Blood Urea Nitrogen 20 mg/dl (7-17); Calcium 9.2 mg/dl (8.4-10.2); Carbon Dioxide 23 mmol/L (22-30); Chloride 108 mmol/L (98-107); Estimated Creatinine Clearance 96 ml/min; Glucose 122 mg/dl (70-99); Magnesium 1.8 mg/dl (1.6-2.3); Potassium 4.6 mmol/L (3.5-5.1); Sodium 139 mmol/L (135-145); Total Bilirubin 0.5 mg/dl (0.2-1.3); eGFR > 60.00
[2023-11-21 14:00] VITALS: BP 101/60
[2023-11-21 14:04] LABS: NT-proBNP 3730 pg/ml; Troponin I 0.163 ng/ml
[2023-11-21 14:14] LABS: INR 1.26; PT 15.7 Sec (11.4-14.6)
[2023-11-21 14:19] LABS: D-Dimer < 0.27 ug/mlFEU (0.00-0.50)
[2023-11-21 14:47] LABS: TSH Reflex To Free T4 3.05 uIU/ml (0.47-4.68)
--- NOTE | 2023-11-21 14:47 | CON.CAR ---
Consultation
Consultation Request
Date/Time Consultation Requested: 11/21/2023 at 2 PM
Date/Time Consultation Performed: 11/21/2023 at 3 PM
Requesting Provider: Dr. Sheldon Persaud
Performing Provider: Dr. Kyle Smith
Reason for Consultation: Dyspnea, paroxysmal atrial fibrillation
Medical History
-
Chief Complaint: Dyspnea, palpitations
History of Present Illness:
Pleasant 62-year-old woman with known hypertrophic cardiomyopathy status post ICD, septal wall thickness 2.2 cm, has had 2 episodes of atrial fibrillation, last fall and again a month or 2 ago, received shocks both times. Recently hospitalized with
right lower lobe pneumonia. Had episode of atrial fibrillation and seen in the ER yesterday converted to sinus rhythm with diltiazem, did not receive a shock. Seen by Dr. Stiles about a month ago, was recommended to increase diltiazem to 120 mg
twice daily but did not do so because of her recent pneumonia and fatigue. She has noted bradycardia of late. Medtronic ICD is programmed AAI to DDD at a rate of 45. She felt very fatigued and washed out today and comes into the emergency
department. Interrogation of her ICD shows rare atrial or ventricular pacing. However she is T wave oversensing leading to bradycardia. OptiVol threshold is good. She has had no VT.
Past Medical History
Past Medical History: Arrhythmias (Medtronic ICD, paroxysmal atrial fibrillation, nonsustained ventricular tachycardia obstructive cardiomyopathy, scheduled to see Dr. Cano at [facility], sees Dr. Stiles, has had ICD discharges for
atrial fibrillation), GERD, Hypothyroidism and Other (Recent hospital stay for pneumonia)
Past Surgical History: Appendectomy and Other (ICD implantation, laparoscopy, )
Social History
Tobacco: Former Smoker (Quit 6 weeks ago)
Alcohol: Occasional
Drug: None
Personal:
Living: Alone
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
Family History
Family History: Other (Brother with PVI, son with septal hypertrophy)
Allergies / Home Medications
Allergy/AdvReac Type Severity Reaction Status Date / Time
bee stings Allergy Swelling Uncoded 09/30/23 18:25
�Medication �Instructions �Recorded �Confirmed �Type
loratadine 10 mg tablet 10 mg PO DAILY Allergies 01/28/08 11/21/23 History
escitalopram oxalate 5 mg tablet 5 mg PO DAILY Mental Health/Anxiety 06/04/16 11/21/23 History
ascorbic acid (vitamin C) 500 mg 500 mg PO DAILY Supplement 09/30/23 11/21/23 History
tablet (Vitamin C)
levothyroxine 88 mcg tablet 88 mcg PO DAILY Thyroid 09/30/23 11/21/23 History
(Synthroid)
metoprolol succinate 50 mg 50 mg PO BID Blood Pressure 09/30/23 11/21/23 History
tablet,extended release 24 hr
(Toprol XL)
omeprazole 20 mg tablet,delayed 20 mg PO DAILY GERD 09/30/23 11/21/23 History
release
pravastatin 80 mg tablet 40 mg PO HS High Cholesterol 09/30/23 11/21/23 History
therapeutic multivitamin 1 tab PO DAILY Supplement 09/30/23 11/21/23 History
turmeric 400 mg capsule 400 mg PO DAILY Supplement 09/30/23 11/21/23 History
diltiazem HCl 120 mg 120 mg PO DAILY 30 days #30 caps 10/01/23 11/21/23 Rx
capsule,extended release 24 hr
acetaminophen 325 mg tablet 650 mg PO Q4HPRN PRN mild pain 11/21/23 11/21/23 History
(Tylenol)
apixaban 5 mg tablet (Eliquis) 5 mg PO BID 11/21/23 11/21/23 History
Review of Systems
-
All other systems: Negative unless noted
Physical Exam
Vital Signs
Temp Pulse Resp BP Pulse Ox
36.6 C 58 19 104/66 96
11/21/23 13:02 11/21/23 13:45 11/21/23 13:30 11/21/23 13:17 11/21/23 13:45
Lab Results
11/21/23 13:27
11/21/23 13:27
Troponin I 0.163 ng/ml H* 11/21/23 13:27
Tao-R-Iskjeopdhkx Pept 3730 pg/ml 11/21/23 13:27
Physical Exam
General: No Apparent Distress
HEENT: Normocephalic
Respiratory: Clear
Cardiac: Regular Rhythm and Murmur (Systolic murmur does not obviously augment with Valsalva)
Breast: Deferred by me
GI: Non Distended and Normal Bowel Sounds
Musculoskeletal: No Cyanosis and No Edema
Skin: Warm and Dry
Neuro: AO x 3
Psych: Calm
Impression / Plan
-
Impression:
Obstructive hypertrophic cardiomyopathy
Medtronic dual-chamber ICD programmed AAI-DDD
T wave oversensing at 0.3 mV
Paroxysmal atrial fibrillation
Detectable but flat troponin following paroxysmal atrial fibrillation with RVR
Elevated proBNP but without evidence of CHF by thoracic impedance or exam
Tobacco abuse -now abstinent
GERD
Nonsustained VT
Plan:
She presents with recurrent paroxysmal atrial fibrillation with rapid ventricular response. She is on metoprolol and diltiazem. ICD performance and pacing may be affected by T wave oversensing and so T wave sensitivity was decreased to 0.45. With
this T wave oversensing was no longer apparent. PV/AV delay is 1 5180 ms which could be of value in hypertrophic cardiomyopathy. Base rate was reprogrammed from 45-60.
As a temporizing measure add amiodarone 200 mg twice daily x 1 month then 200 mg daily. Continue metoprolol and diltiazem.
Patient will follow-up to Dr. Sitles.
Data Reviewed
-
EKG: Tracing Personally Visualized and interpreted (Sinus bradycardia, atrial pacing, LVH with repolarization abnormality)
Radiology: Image Personally Visualized and interpreted (Chest x-ray with infiltrate November 05)
Medical Tests (Nuc Med, Echo etc): Image Personally Visualized and interpreted (Echo September 2023: Asymmetric septal hypertrophy with interventricular septum 2.2 cm, EF 70-75%, mid cavity gradient of 86 mmHg increasing to 211, stage II diastolic
dysfunction, severely dilated left atrium, mild to moderate mitral regurgitation, mild TR, pulmonary artery pressure 30-35 mmHg, normal )
Labs: Labs Reviewed by me (White count 6.9, hemoglobin 12.7, platelets 270, BUN and creatinine 20 and 0.6, troponin 0.0163, proBNP is 3730)
Old Records: Reviewed
Total Time Spent with Patient (in minutes): 65 minutes, including reprogramming
[2023-11-21 15:00] VITALS: BP 105/60
[2023-11-21 15:59] LABS: Troponin I 0.168 ng/ml
[2023-11-21] MEDS: PACERONE 200 MG PO (16:28)
== END 2023-11-21 16:45 | disposition home or self-care (01) ==
LOC: EMR 13:00
PROVIDERS: CONSULT PHYSICIAN Internal Medicine Cardiovascular Disease; EMERGENCY PHYSICIAN Student in an Organized Health Care Education/Training Program; FAMILY PHYSICIAN Internal Medicine
DX: R00.1 Bradycardia, unspecified (principal); K21.9 Gastro-esophageal reflux disease without esophagitis; E03.9 Hypothyroidism, unspecified; I42.1 Obstructive hypertrophic cardiomyopathy; K58.9 Irritable bowel syndrome, unspecified; Z83.49 Family history of other endocrine, nutritional and metabolic diseases; Z83.79 Family history of other diseases of the digestive system; Z87.891 Personal history of nicotine dependence; Z90.49 Acquired absence of other specified parts of digestive tract; Z95.810 Presence of automatic (implantable) cardiac defibrillator
CPT/HCPCS: 99283; 71046; 80053; 83735; 83880; 84443; 84484; 85025; 85379; 85610; 85730; 93005

== ENCOUNTER → 2023-12-07 08:36 | Outpatient (REF) | payer OTHER, SELFPAY | LOC: RAD 08:36 | PROVIDERS: ATTENDING PHYSICIAN Nurse Practitioner | DX: J18.9 Pneumonia, unspecified organism (principal) | CPT/HCPCS: 71046 ==

== ENCOUNTER 2023-12-22 18:06 | Emergency (ER) | payer OTHER, SELFPAY ==
[2023-12-22 18:09] VITALS: BP 126/71
[2023-12-22 19:01] LABS: Troponin I < 0.012 ng/ml
[2023-12-22 19:54] VITALS: BP 97/71
[2023-12-22 19:55] VITALS: BMI 34.7
[2023-12-22 20:00] VITALS: BP 103/68
--- NOTE | 2023-12-22 20:24 | ED.GENMED ---
History of Present Illness
General
Chief Complaint: Breathing Problem
Source: patient
Time Seen by Provider: 12/22/23 19:24
History of Present Illness
History of Present Illness:
63-year-old female presents to the emergency room complaining of episodic shortness of breath. Patient has been feeling short of breath for the past several days. She has episodes and describes it as almost like an asthma attack. She was
prescribed Xopenex by her primary care provider which may help when she uses it. She denies any chest pain. She has not experienced any peripheral edema. Patient has a complex medical history including hypertrophic cardiomyopathy. She has an
ICD. Patient was recently hospitalized after an episode of A-fib. She has spontaneously converted to normal sinus rhythm. She is on amnio to help prevent recurrence. She is scheduled for an ablation in the coming days. Patient is known to
[facility].
Past History
Past History
ED Past Medical History: Arrthythmia, GERD, Hypothyroidism and Other (Hypertrophic cardiomyopathy, Vertigo, IBS)
ED Past Surgical History: Appendectomy, Cardiac (Pacer/Defib) and
Social History
Tobacco: Former smoker
Alcohol: None
Drug: None
Personal:
Living: with family
Employment: Employed
Phy Exam
Physical Exam
Physical Exam:
General: Awake, Alert, Oriented X3. No acute distress.
Vitals: unremarkable
Head: Atraumatic
Eyes: Pupils equal, EOMI
Throat: Airway intact, no exudates
Neck: Trachea midline
Lungs: Clear and equal b/l
Heart: Regular rate, no murmurs
Abd: Soft, Nontender, No pulsatile mass
Neuro: Nonfocal
Skin: Warm, dry, no rash
Extremities: pulses equal b/l, no edema
Scores
Heart Failure Risk
Heart Failure Risk Score: Yes
History of Stroke or TIA: No
History of intubation for respiratory distress: No
Heart rate on ED arrival >/= 110: No
SaO2 <90% on arrival on room air: No
HR >/=110 during 3min walk test (or too ill to perform test): No
ECG has acute ischemic changes: No
Urea >/=12mmol/L (BUN 33.6mg/dL): No
Serum CO2>/=35mmol/L: No
Troponin I or T elevated to FL Level (0.4mg/dL): No
NT-proBNP >/=5,000ng/L (5,000pg/ml): No
HF Risk Score: 0
Admission Status: LOW RISK 2.8% Consider discharge to home with f/u visit to PCP/[facility]
Course
Orders/Labs/Results
Orders:
Orders
12/22/23 18:14
EKG [Electrocardiogram (*1)] Urgent
Reason for Study: Shortness of Breath
12/22/23 18:15
EKG- Treatment ONCE
Chest [CR Chest - 2 Views ] Urgent
Comment:
Reason For Exam: shortness of breath
12/22/23 18:32
NT-proBNP Urgent
Comment: ADD ON
Troponin I Urgent
12/22/23 20:20
Interrogate Pacemaker- Treatment ONCE
Comment: medtronic
12/22/23 20:24
Add On- LAB Urgent
Tests Added?: bnp
Vital Signs
Initial and Last Documented VS:
Initial Vital Signs
Temp Pulse Resp BP Pulse Ox
97.8 F 65 18 126/71 95
12/22/23 18:09 12/22/23 18:09 12/22/23 18:09 12/22/23 18:09 12/22/23 18:09
Last Documented Vital Signs
Temp Pulse Resp BP Pulse Ox
97.8 F 61 16 110/68 97
12/22/23 18:09 12/22/23 21:30 12/22/23 21:30 12/22/23 21:00 12/22/23 21:00
MDM/Problems Addressed
Differential Diagnosis Includes:
CHF, anemia, anxiety, asthma
MDM/Problems Addressed:
Patient presents with dyspnea which is episodic in nature. But the time I evaluated the patient is feeling better. Workup here shows mild pulmonary edema on her chest x-ray. Patient had labs yesterday which showed normal renal function. A BNP
was obtained today which is elevated 2910. Troponin is normal. I reviewed the patient's chest CT from yesterday. There was notation of possible pulmonary hypertension. We interrogated the patient's Medtronic ICD. It is functioning as expected
and there have been no dysrhythmias. However there is increased impedance suggestive of fluid overload. Discussed patient's patient Tatian with Dr. Best. He agrees with initiating Lasix. Asked the patient call and touch base with Dr. Stiles
tomorrow. Patient understands that she needs to do this. Offered a dose of IV Lasix to get the diuresis started but given the time of the evening she declines this as it will keep her up all night urinating.
Chronic conditions affecting care: HTN and Cardiomyopathy (Hypertrophic cardiomyopathy)
*Radiology
Radiology exam reviewed: radiology read reviewed
*Pulse Oximetry
Patient hypoxic: no
*EKG
Interpreted by ED Provider?: Yes
Interpretation: abnormal
Heart Rate: 62
Rate: normal
Rhythm: av sequential
Ischemia: no ischemia
*Orthopedic Shoe Fitter Interpretation
Rate: normal
Rhythm: av sequential
*Critical Care Note
Total Time (30-74mins, 75-104mins- exclusive of procedures): Not Applicable
Data Reviewed
Review of Other/Old Records Reveals: Discharge Summary
ED Attending Note
-
Portions of this chart may have been created with voice recognition software.� Occasional wrong word or��sound alike� substitutions may have occurred due to the inherent limitations of voice recognition software.
Discharge Plan
Departure
Patient Disposition: Home (Routine Discharge)
Date of Disposition: 12/22/23
Time of Disposition: 21:33
Patient with high blood pressure during this ER visit?: No
Condition: Good
Discharge Problem:
Dyspnea, CHF (congestive heart failure)
Instructions: Shortness of breath, *[facility] Heart Failure Instructions
Prescriptions:
New
furosemide 20 mg tablet
20 mg PO DAILY Qty: 14 0RF
No Action
loratadine 10 MG tablet
10 mg PO DAILY
escitalopram oxalate 5 MG tablet
5 mg PO DAILY
metoprolol succinate [Toprol XL] 50 mg Tablet Extended Release 24 Hr
50 mg PO BID
pravastatin 80 mg Tablet
40 mg PO HS
ascorbic acid (vitamin C) [Vitamin C] 500 mg Tablet
500 mg PO DAILY
omeprazole 20 mg Tablet,Delayed Release (Dr/Ec)
20 mg PO DAILY
turmeric 400 mg Capsule
400 mg PO DAILY
levothyroxine [Synthroid] 88 mcg Tablet
88 mcg PO DAILY
therapeutic multivitamin Tablet
1 tab PO DAILY
diltiazem HCl 120 mg Capsule,Extended Release 24hr
120 mg PO DAILY 30 Days Qty: 30 0RF
acetaminophen [Tylenol] 325 mg Tablet
650 mg PO Q4HPRN PRN (Reason: mild pain)
Eliquis 5 mg Tablet
5 mg PO BID
amiodarone 200 mg tablet
200 mg PO BID Qty: 60 0RF
Referrals:
NONE,* [Active] -
Interventions
Interventions:
*Risk Screen - Suicide Last Done: 12/22/23 18:09
*General Assessment Last Done: 12/22/23 18:09
*Neglect/Abuse Screening Last Done: 12/22/23 18:09
ED- Fall Risk Assessment Last Done: 12/22/23 19:57
*ED COVID-19 Vaccine History Last Done: 12/22/23 19:58
*Nursing Disposition Last Done: 12/22/23 21:41
ED- Cardiac Assessment Last Done: 12/22/23 19:57
ED- Pulmonary Assessment Last Done: 12/22/23 19:57
Discharge Date and Time
Discharge Date/Time: 12/22/23 21:42
Print Language: KOREAN
[2023-12-22 21:00] VITALS: BP 110/68
[2023-12-22 21:07] LABS: NT-proBNP 2910 pg/ml
== END 2023-12-22 21:42 | disposition home or self-care (01) ==
LOC: EMR 18:06
PROVIDERS: Emergency Medicine; EMERGENCY PHYSICIAN Emergency Medicine; FAMILY PHYSICIAN Internal Medicine
DX: R06.00 Dyspnea, unspecified (principal); I11.0 Hypertensive heart disease with heart failure; I50.9 Heart failure, unspecified; K21.9 Gastro-esophageal reflux disease without esophagitis; E03.9 Hypothyroidism, unspecified; I42.2 Other hypertrophic cardiomyopathy; I48.91 Unspecified atrial fibrillation; K58.9 Irritable bowel syndrome, unspecified; Z79.01 Long term (current) use of anticoagulants; Z87.891 Personal history of nicotine dependence; Z95.810 Presence of automatic (implantable) cardiac defibrillator; Z91.030 Bee allergy status
CPT/HCPCS: 99284; 93289; 71046; 83880; 84484; 93005

== ENCOUNTER 2023-12-23 13:33 | Outpatient (RCR) | payer OTHER, SELFPAY | END 2023-12-23 23:59 | disposition home or self-care (01) | LOC: RPT 13:33 | PROVIDERS: ATTENDING PHYSICIAN Specialist; FAMILY PHYSICIAN Internal Medicine | DX: M17.0 Bilateral primary osteoarthritis of knee (principal); Z73.6 Limitation of activities due to disability | CPT/HCPCS: 97110; 97112; 97140; 97162 ==

== ENCOUNTER 2023-12-28 08:30 | Day surgery (SDC) | payer OTHER, SELFPAY ==
[2023-12-21 10:50] VITALS: BMI 34.1
[2023-12-21 11:13] LABS: % Eosinophils 2.3 % (0-6); % Immature Granulocytes 0.4 % (0-0.5); % Lymphocytes 31.3 % (20.5-51.1); Absolute Basophils 0.1 10^3/uL (0-0.2); Absolute Eosinophils 0.1 10^3/uL (0-0.7); Absolute Lymphocytes 1.5 10^3/uL (1.2-3.4); Absolute Monocytes 0.4 10^3/uL (0.1-0.6); Absolute Neutrophils 2.7 10^3/uL (1.4-6.5); Hematocrit 35.7 % (37.0-47.0); Hemoglobin 12.6 g/dL (12.0-16.0); Mean Corp Hgb Conc. 35.3 g/dL (33.0-37.0); Mean Corpuscular Hgb 31.6 pg (27.0-31.0); Mean Corpuscular Volume 89.5 fL (81.0-99.0); Mean Platelet Volume 9.1 fL (7.4-10.4); Nucleated Red Blood Cells % 0 %; Platelet Count 228 10^3/uL (130-400); Red Blood Cell Count 3.99 10^6/uL (4.20-5.40); Red Cell Dist. Width 13.8 % (11.5-14.5); White Blood Cell Count 4.8 10^3/uL (4.8-10.8)
[2023-12-21 11:24] LABS: INR 1.28; PT 15.9 Sec (11.4-14.6)
[2023-12-21 11:30] LABS: ALT (SGPT) 16 U/L (0-35); AST (SGOT) 27 U/L (14-36); Albumin 4.6 g/dl (3.5-5.0); Alkaline Phosphatase 65 U/L (38-126); Blood Urea Nitrogen 21 mg/dl (7-17); Calcium 9.5 mg/dl (8.4-10.2); Carbon Dioxide 26 mmol/L (22-30); Chloride 106 mmol/L (98-107); Estimated Creatinine Clearance 61 ml/min; Glucose 93 mg/dl (70-99); Magnesium 1.8 mg/dl (1.6-2.3); Potassium 4.8 mmol/L (3.5-5.1); Sodium 141 mmol/L (135-145); Total Bilirubin 0.7 mg/dl (0.2-1.3); Total Protein 7.7 g/dl (6.3-8.2); eGFR > 60.00
[2023-12-28] VITALS (18 sets, daily range): BP systolic 73–110; BP diastolic 53–74
[2023-12-28] MEDS: NSS 500 IV ×2 (08:54→13:26)
[2023-12-28 11:22] LABS: ACT-LR - POC 281 Seconds (116-155)
[2023-12-28 11:43] LABS: ACT-LR - POC 305 Seconds (116-155)
--- NOTE | 2023-12-28 12:14 | ITS.CL.ABL ---
Workers Compensation Specialist - Ablation
Ablation
Procedure Report:
ELECTROPHYSIOLOGY ABLATION STUDY
�
DATE:: December 28, 2023���������������������������� REFERRING: Dr. Dalia Cano
�
INDICATION: Paroxysmal supraventricular tachycardia in the form of atrial fibrillation.� History of HOCM being evaluated for Camzyos therapy with prior symptomatic atrial fibrillation leading to ICD shocks as well as symptomatic atrial fibrillation
with controlled rates
�
HISTORY: See H and P.� As above
�
ANTIARRHYTHMIC DRUG: Amiodarone
�
PRE-PROCEDURE WILMER: No atrial thrombus on intracardiac ultrasound with dense left atrial smoke and severe left atrial enlargement
�
PRESENTING RHYTHM: Atrial ventricular pacing
�
'TIME-OUT':� called and confirmed.
�
SEDATION/ANESTHESIA:� provided via the anesthesia department using general anesthesia (LMA).
�
INTRAVENOUS/ARTERIAL ACCESS:
Right femoral venous - 8Fr upgraded to 16 Luxembourger short sheath
Left femoral venous - 8 Fr, 6 Fr
Ultrasound guidance for bilateral femoral vein access was utilized by me to obtain access with demonstration of normal anatomy
CHADS-VASC Score:
�
HAS-Bled Score
�
PROCEDURE:�
1.� A decapolar CS catheter was placed within the CS for mapping and pacing.� This was also used as the reference catheter for the 3-D map. The patient's dual-chamber ICD was interrogated and reprogrammed to have therapies off at the beginning of
the procedure and at the end of the procedure therapies were turned back on. Patient was left at DDD 50-130 beats a minute with AV pacing and therapies back on.
�
2. The intracardiac ultrasound catheter was positioned in the RA to identify the FO for targeting of transseptal puncture, assist� in identification of the pulmonary vein ostia, monitoring pre and post ablation pulmonary vein flow velocities,
monitoring for 'bubble' formation during RF application as a sign of thermal injury,� and to monitor for pericardial effusion during mapping and ablation procedure.�� Left atrial size, LV ejection fraction, and pulmonary vein flows were monitored
pre and post ablation procedure. The other valves were inspected and found to be free of significant regurgitation or stenosis.
�
3.� Half of the calculated heparin bolus was administered prior to the first transeptal puncture.� Transseptal puncture was performed to diagnose RA and LA pressure so that safety of LA mapping and ablation could be further assessed, and to access
the left atrium and pulmonary veins for mapping and ablation.� This entailed advancing an 10 Luxembourger Contour with dilator apparatus into the superior vena cava and withdrawing both (monitoring intracardiac ultrasound, fluoroscopy and tip pressure)
with the tip oriented toward the atrial septum.� The 10 Luxembourger Contour sheath could not find the fossa reliably and this was removed and exchanged for the 10 Luxembourger steerable sheath and then once left atrial access was obtained over a ProTrac wire
the contour sheath was brought to the left atrium. The fossa ovalis was engaged (indicated by sudden displacement of the sheath tip as well as tenting of the fossa seen on intracardiac ultrasound).� Left atrial access required a pass with the
Brockenbrough needle extended.� Left atrial catheter position was confirmed by pressure monitoring (RA mean pressure to mm Hg and LA mean presure 6 mm Hg), LA saturation (99%),� as well as fluoroscopy.� The sheath was advanced over the dilator and
positioned in the left atrium.� This procedure was repeated for the Agilis sheath.� The remainder of the calculated heparin bolus was administered and heparin was
infused to maintain ACT at 300 -350 seconds throughout the case. Transseptal puncture was extremely challenging with a severe left atrial enlargement and displacement of the right atrium and interatrial fossa somewhat low and anterior. We utilized
the 10 Luxembourger steerable sheath for transseptal puncture.
�
4.� RA pacing was performed via the proximal decapolar poles and LA pacing was performed via the distal decapolr poles.
�
5. A quadrapolar catheter was first positioned at the His position for His Bundle recording which was tagged via the 3-D Navex sytem, and then passed to the RVA for RV pacing and recording.
�
6. The multipolar catheter and PFA catheter were placed in each of the LIPV, LSPV, RSPV and the RIPV.��
�
7.� Next, a 3-D map was created using Navex.�� A 3-D reconstructed CT image was compared to the 3-D Navex map to assist in anatomic interpretation, mapping and ablation.� The CT image and the NavX image were fused.
�
8. Pulmonary vein isolation was performed with entrance and exit block confirmed as well as posterior wall roof and floor of the left atrium were isolated with PFA. A total of 84 lesions was given. Intracardiac ultrasound was utilized to
demonstrate contact over the wire. Post confirming entrance and exit block in all 4 pulmonary veins and electrical silence at the posterior wall there was no other inducible trigger for atrial fibrillation or nonpulmonary vein trigger for atrial
fibrillation.
�
9. Patient had no programming changes on the device
�
TOTAL FLOURO TIME: 23.7 minutes 240 mGy
�
TOTAL RF DURATION: 0 minutes
�
REVERSAL OF HEPARIN: 35 mg of protamine, slow IV administration
�
COMPLICATIONS:�
None
Intracardiac US shows no pericardial effusion post ablation.
�
SUMMARY:��
Complex left atrial mapping and ablation.
Isolation of all 4 pulmonary veins plus left atrial posterior wall isolation as above. Difficult transseptal due to left atrial enlargement and displacement of the right atrial fossa.
�
RECOMMENDATIONS:
1. Admit to monitored bed.
2. Resume anticoagulation
3.� Discontinue amiodarone in 2 to 4 weeks and consider same-day discharge
4.� Ongoing evaluation with Dr. Cano at [facility] hypertrophic cardiomyopathy clinic for Camzyos therapy
�
Copy to: Dr. Dalia Cano division of heart failure transplant hospitalist at [place]
�
[2023-12-28] MEDS: TYLENOL 650 MG PO ×2 (12:45→16:32)
--- NOTE | 2023-12-28 13:17 | PTCARENOTE ---
Pt is maintaining MAP but dropping SBP. 50 ML NSS bolus given to pt by Dr Jay with order for another 500 ml NSS to follow. Pt remains groggy/sedated on FM. Will cont to monitor.
[2023-12-28] MEDS: ANESTHETIC LOZENGE 1 LOZENGE PO (16:30)
--- NOTE | 2023-12-28 16:48 | W.PN.UPDATE ---
Update Note
Progress Note Update
Pt seen post PFA. Bilat groin sites without ht/bleeding, non tender. OOB ambulating, urinating without difficulty. Post EKG AV paced 60s. Resume Eliquis today and will continue amiodarone until followup with cardiology. Followup with Dr. Stiles in
january as scheduled. Home today if groin sites/tele remain stable.
--- NOTE | 2023-12-28 17:39 | PTCARENOTE ---
Pt ambulated again x2 after 20 minutes of bedrest, voided again. No further bleeding .
== END 2023-12-28 17:30 | disposition home or self-care (01) ==
LOC: CATH 08:30
PROVIDERS: ATTENDING PHYSICIAN Internal Medicine Cardiovascular Disease; FAMILY PHYSICIAN Internal Medicine
DX: I48.0 Paroxysmal atrial fibrillation (principal); I47.10 Supraventricular tachycardia, unspecified; Z95.810 Presence of automatic (implantable) cardiac defibrillator; I42.2 Other hypertrophic cardiomyopathy; I50.30 Unspecified diastolic (congestive) heart failure; I08.1 Rheumatic disorders of both mitral and tricuspid valves; I51.7 Cardiomegaly; E03.9 Hypothyroidism, unspecified; F17.210 Nicotine dependence, cigarettes, uncomplicated; Z79.01 Long term (current) use of anticoagulants
CPT/HCPCS: C1732; C1894; C1730; C1733; C1769; C1766; C1892; C1759; 36415; 75572; 76937; 80053; 83735; 85025; 85347; 85610; 86850; 86900; 86901; 93005; 93656; Q9967

== ENCOUNTER → 2024-01-19 14:58 | Outpatient (REF) | payer OTHER, SELFPAY | LOC: RAD 14:58 | PROVIDERS: ATTENDING PHYSICIAN Internal Medicine Cardiovascular Disease; FAMILY PHYSICIAN Internal Medicine | DX: I42.1 Obstructive hypertrophic cardiomyopathy (principal); Z95.810 Presence of automatic (implantable) cardiac defibrillator | CPT/HCPCS: 71046 ==

== ENCOUNTER 2024-01-27 10:31 | Outpatient (RCR) | payer OTHER, SELFPAY | END 2024-01-27 23:59 | disposition home or self-care (01) | LOC: RPT 10:31 | PROVIDERS: ATTENDING PHYSICIAN Specialist; FAMILY PHYSICIAN Internal Medicine | DX: M17.0 Bilateral primary osteoarthritis of knee (principal); Z73.6 Limitation of activities due to disability | CPT/HCPCS: 97110; 97112; 97140 ==

== ENCOUNTER 2024-02-24 14:06 | Outpatient (RCR) | payer OTHER, SELFPAY | END 2024-02-24 23:59 | disposition home or self-care (01) | LOC: RPT 14:06 | PROVIDERS: ATTENDING PHYSICIAN Specialist; FAMILY PHYSICIAN Internal Medicine | DX: M17.0 Bilateral primary osteoarthritis of knee (principal); Z73.6 Limitation of activities due to disability | CPT/HCPCS: 97110; 97112; 97140 ==

== ENCOUNTER 2024-03-23 07:22 | Outpatient (RCR) | payer OTHER, SELFPAY | END 2024-03-23 23:59 | disposition home or self-care (01) | LOC: RPT 07:22 | PROVIDERS: ATTENDING PHYSICIAN Specialist; FAMILY PHYSICIAN Internal Medicine | DX: M17.0 Bilateral primary osteoarthritis of knee (principal); Z73.6 Limitation of activities due to disability | CPT/HCPCS: 97010; 97110; 97112; 97140 ==

== ENCOUNTER 2024-04-25 08:58 | Outpatient (RCR) | payer OTHER, SELFPAY | END 2024-04-25 13:43 | disposition home or self-care (01) | LOC: RPT 08:58 | PROVIDERS: ATTENDING PHYSICIAN Specialist; FAMILY PHYSICIAN Internal Medicine | DX: M17.0 Bilateral primary osteoarthritis of knee (principal); Z73.6 Limitation of activities due to disability | CPT/HCPCS: 97110; 97112 ==